=== PATIENT | female | born 1945 | race Caucasian/White ===

== ENCOUNTER → 2017-01-23 | Outpatient (CLI) | payer MEDICARE ==
[~2017-01-23] MED LIST: ACET-819 PO; AMT50T; ASP325TEC; B-12 INJECTION; BUPR150T7 PO; CA C1TAB26 PO; CEREFOLIN; CLD600T; CRANBERRY SUPPLEMENT; DEXL60CA5 PO; DXCC100C; ELESTAT; EPIN5DRO3 OP; ESTROGCO.3; FIBER SUPPLEMENT; FLX20C; GBPN100C PO; IRBE1TAB; L-METHYLFOLATE; LOSA1TAB23 PO; LVT.025T; MULT1TAB63; OMG1KC; PROP1TAB77; SENN1TAB76; SOOTHE EYE DROPS; STOOL SOFTENER; [UNRECOGNIZED DRUG - CODE]; [UNRECOGNIZED DRUG - CODE] PO
--- NOTE | 2017-01-23 12:16 | Diagnostic Imaging Report ---
PROCEDURE: US Thyroid. TECHNIQUE: Multiple real-time grayscale images were obtained of the thyroid in various projections. INDICATION: Abnormal thyroid labs. FINDINGS: The right thyroid lobe is 4.2 x 1.7 x 1.5 cm. The left lobe is 4.2 x 1.1 x 1.4 cm. A fairly homogeneous gland is seen with no nodule identified. IMPRESSION: Unremarkable exam. Dictated by: Dictated on workstation # [id number]
== END ==
LOC: RAD 10:55
PROVIDERS: ATTEND Family Medicine
DX: E03.9 Hypothyroidism, unspecified (principal)
CPT/HCPCS: 76536

== ENCOUNTER → 2017-04-23 | Outpatient (CLI) | payer MEDICARE ==
[~2017-04-23] VITALS: Ht 167.6 cm; Wt 104.3 kg
[~2017-04-23] MED LIST changes: +NS (IVPB) 50 ML ONE; +NS IV 1000 ML 1,000 ML IV ONE; +NS IV 1000 ML 1,000 ML ONE; +ONDANSETRON 4 MG/2 ML (SDV) Z0FRAN IV ONE; +ONDANSETRON 4 MG/2 ML (SDV) Z0FRAN ONE; +cefTRIAXone 1 GM (ROCEPHIN) VIAL ONE; +cefTRIAXone 1 GM/NS 50 ML IVPB IV ONE
[2017-04-23 15:07] VITALS: BP 137/86
== END ==
LOC: SDC 14:43
PROVIDERS: ATTEND Family Medicine
DX: N10 Acute pyelonephritis (principal); E86.0 Dehydration
CPT/HCPCS: 96360; 96366; 96374

== ENCOUNTER 2017-07-21 10:14 | Observation (INO) | payer MEDICARE ==
[~2017-07-21] VITALS: Ht 167.6 cm; Wt 103.4 kg
[~2017-07-21 10:14] MED LIST changes: -NS (IVPB) 50 ML ONE; -NS IV 1000 ML 1,000 ML IV ONE; -NS IV 1000 ML 1,000 ML ONE; -ONDANSETRON 4 MG/2 ML (SDV) Z0FRAN IV ONE; -ONDANSETRON 4 MG/2 ML (SDV) Z0FRAN ONE; -cefTRIAXone 1 GM (ROCEPHIN) VIAL ONE; -cefTRIAXone 1 GM/NS 50 ML IVPB IV ONE
--- OUTSIDE RECORDS SUMMARY | 2017-07-21 10:20 | XMS REPORT | Continuity of Care Document ---
Author Author [facility] Organization [facility] Address Unknown Phone Unavailable Allergies Active Description Code Type Severity Reaction Onset Reported/Identified Relationship to Patient Clinical Status Yes No Known Drug Allergies [id number] Drug Allergy Unknown N/ A 07/19/2008 Medications Problems Date Dx Coded Attending Type Code Diagnosis Diagnosed By 11/15/2011 Ot 211.1 BENIGN NEOPLASM STOMACH 11/15/2011 Ot 455.0 INT HEMORRHOID W/O COMPL 11/15/2011 Ot 530.11 REFLUX ESOPHAGITIS 11/15/2011 Ot 535.50 UNSP GASTRITIS GASTRODUODENITIS W/O ME 11/15/2011 Ot 553.3 DIAPHRAGMATIC HERNIA 11/15/2011 Ot 562.10 DIVERTICULOSIS COLON (W/O MENT OF HEMORR 05/06/2014 ANN MARIE FRAZIER DO Ot 722.52 LUMB/LUMBOSAC DISC DEGEN 05/06/2014 ANN MARIE FRAZIER DO Ot V57.1 PHYSICAL THERAPY NEC 11/03/2014 Ot 787.3 11/03/2014 Ot V81.5 11/03/2014 Ot 721.0 11/03/2014 Ot 715.94 11/03/2014 Ot 729.5 11/03/2014 Ot 397.0 11/03/2014 Ot 424.0 11/03/2014 Ot 786.50 11/03/2014 Ot 794.31 11/03/2014 Ot V72.84 11/03/2014 Ot 715.96 11/03/2014 BALAJI PARTIDA, Martha PALOMARES Ot 564.00 11/03/2014 Martha CARPIO MD Ot 595.9 11/04/2014 ANN MARIE FRAZIER DO Ot 733.90 11/17/2015 LALO MORALES MD Ot M47.816 SPONDYLOSIS W/O MYELOPATHY OR RADICULOPA 11/17/2015 LALO MORALES MD Ot Z79.899 OTHER CLAY GRINDER (CURRENT) DRUG THERAPY 12/07/2015 LALO MORALES MD, Ot M54.2 12/07/2015 LALO MORALES MD Ot M54.5 12/18/2015 LALO MORALES MD Ot M54.2 12/18/2015 LALO MORALES MD Ot M54.5 03/01/2016 LALO MORALES MD Ot M47.812 SPONDYLOSIS W/O MYELOPATHY OR RADICULOPA 03/01/2016 LALO MORALES MD, Ot M47.816 SPONDYLOSIS W/O MYELOPATHY OR RADICULOPA 03/01/2016 LALO MORALES MD Ot Z79.899 OTHER CLAY GRINDER (CURRENT) DRUG THERAPY 06/14/2016 Ot 715.94 OSTEOARTHROS NOS-HAND 06/14/2016 Ot 729.5 PAIN IN LIMB 06/14/2016 Ot 397.0 TRICUSPID VALVE DISEASE 06/14/2016 Ot 424.0 MITRAL VALVE DISORDER 06/14/2016 Ot 786.50 CHEST PAIN NOS 06/14/2016 Ot 794.31 ABNORM ELECTROCARDIOGRAM 06/14/2016 Ot V72.84 EXAM PRE-OPERATIVE NOS 06/14/2016 Ot 715.96 OSTEOARTHROS NOS-L/LEG 06/14/2016 BALAJI PARTIDA, Martha PALOMARES Ot 564.00 UNSPEC CONSTIPATION 06/14/2016 BALAJI PARTIDA, Martha PALOMARES Ot 595.9 CYSTITIS NOS 06/14/2016 ANN MARIE FRAZIER DO Ot 733.90 BONE CARTILAGE DIS NOS 06/14/2016 LALO MORALES MD Ot M54.2 CERVICALGIA 06/14/2016 LALO MORALES MD Ot M54.5 LOW BACK PAIN 06/14/2016 LALO MORALES MD Ot M47.812 SPONDYLOSIS W/O MYELOPATHY OR RADICULOPA 06/14/2016 LALO MORALES MD Ot M47.816 SPONDYLOSIS W/O MYELOPATHY OR RADICULOPA 06/14/2016 LALO MORALES MD Ot Z79.899 OTHER CLAY GRINDER (CURRENT) DRUG THERAPY 07/04/2016 LALO MORALES MD Ot M47.812 SPONDYLOSIS W/O MYELOPATHY OR RADICULOPA 07/04/2016 LALO MORALES MD Ot M47.816 SPONDYLOSIS W/O MYELOPATHY OR RADICULOPA 07/04/2016 LALO MORALES MD Ot Z79.899 OTHER CLAY GRINDER (CURRENT) DRUG THERAPY 01/23/2017 IVONENDER JENNIFER PARADALINE S Ot E03.9 HYPOTHYROIDISM, UNSPECIFIED 01/24/2017 IVONENDER DOGISSELANN MARIE S Ot E03.9 HYPOTHYROIDISM, UNSPECIFIED 02/14/2017 IVONENDER DOGISSELANN MARIE S Ot E03.9 HYPOTHYROIDISM, UNSPECIFIED 02/19/2017 IVONENDER DOGISSELANN MARIE S Ot E03.9 HYPOTHYROIDISM, UNSPECIFIED Procedures Results Encounters ACCT No. Visit Date/Time Discharge Status Pt. Type Provider Facility Loc./Unit Complaint [id number] 04/23/2017 14:43:00 2016 23:59:59 CLS Outpatient IVONENDER DO ANN MARIE S [facility] SDC ACUTE PYELONEPHRITIS,ACUTE DEHYDRATION [id number] 01/23/2017 10:55:00 2016 23:59:59 CLS Outpatient IVONENDER DO ANN MARIE S [facility] RAD E03.9 [id number] 06/14/2016 08:33:00 2015 09:26:00 DIS Outpatient LALO MORALES MD [facility] CARD SPONDYLOSIS [id number] 03/01/2016 07:37:00 2015 08:52:00 DIS Outpatient LLAO MORALES MD [facility] CARD SPONDYLOSIS [id number] 11/17/2015 08:34:00 2015 09:56:00 DIS Outpatient LALO MORALES MD [facility] CARD SPONDYLOSIS W/O MYELOPATHY OR RADICULOPATHY [id number] 11/14/2015 10:19:00 2015 23:59:59 CLS Outpatient LALO MORALES MD [facility] RAD LOW BACK PAIN [id number] 11/03/2014 09:51:00 2014 23:59:59 CLS Outpatient IVONENDGISSEL ESQUIVEL DOQUELINE S [facility] RAD OSTEOPENIA [id number] 04/18/2014 13:01:00 2013 10:27:00 DIS Outpatient FREDDIE PARADA ANN MARIE S [facility] REHAB LUMBAR DDD, RT HIP PAIN [id number] 06/22/2013 08:51:00 2012 23:59:59 [facility] Outpatient Martha CARPIO MD [facility] RAD CHRONIC CYSTITIS [id number] 05/26/2012 08:11:00 Document Registration [id number] 11/15/2011 09:00:00 Document Registration [id number] 11/13/2011 08:29:00 Document Registration [id number] 07/10/2011 08:27:00 Document Registration [id number] 05/06/2011 14:06:00 Document Registration [id number] 08/21/2010 10:24:00 Document Registration [id number] 05/11/2010 10:09:00 Document Registration
[2017-07-21] MEDS ORDERED: ASPIRIN 81 MG CHEW (CHILDREN'S ASA) PO ONE (10:30)
[2017-07-21] MEDS ORDERED: ONDANSETRON 4 MG/2 ML (SDV) Z0FRAN IVP ONE ×2 (10:30→11:45)
[2017-07-21 10:50] LABS: BASOPHILS % (AUTO) 0 % (0-10); EOSINOPHILS # (AUTO) 0.1 10^3/uL (0.0-0.3); EOSINOPHILS % (AUTO) 2 % (0-10); LYMPHOCYTES # (AUTO) 0.3 X 10^3 (1.0-4.0); LYMPHOCYTES % (AUTO) 4 % (12-44); MEAN CORPUSCULAR HEMOGLOBIN 33 PG (25-34); MEAN CORPUSCULAR HGB CONC 33 G/DL (32-36); MEAN CORPUSCULAR VOLUME 100 FL (80-99); MEAN PLATELET VOLUME 9.7 FL (7.4-10.4); MONOCYTES # (AUTO) 0.3 X 10^3 (0.0-1.0); MONOCYTES % (AUTO) 4 % (0-12); NEUTROPHILS # (AUTO) 6.5 X 10^3 (1.8-7.8); NEUTROPHILS % (AUTO) 90 % (42-75); PLATELET COUNT 237 10^3/uL (130-400); RED BLOOD COUNT 4.02 10^6/uL (4.35-5.85); RED CELL DISTRIBUTION WIDTH 12.8 % (10.0-14.5); WHITE BLOOD COUNT 7.3 10^3/uL (4.3-11.0)
[2017-07-21 11:03] LABS: INR 0.8 (0.8-1.4); PROTHROMBIN TIME PATIENT 11.5 SEC (12.2-14.7)
[2017-07-21 11:08] LABS: BAND NEUTROPHILS 9 %; BASOPHILS % (MANUAL) 0 %; EOSINOPHILS % (MANUAL) 0 %; LYMPHOCYTES % (MANUAL) 6 %; NEUTROPHILS % (MANUAL) 84 %
[2017-07-21 11:12] LABS: ALANINE AMINOTRANSFERASE 48 U/L (0-55); ALBUMIN 4.1 GM/DL (3.2-4.5); AMYLASE 40 U/L (25-125); ANION GAP 11 MMOL/L (5-14); ASPARTATE AMINO TRANSFERASE 63 U/L (5-34); BILIRUBIN,TOTAL 0.6 MG/DL (0.1-1.0); BLOOD UREA NITROGEN 20 MG/DL (7-18); BUN/CREATININE RATIO 17; CALCIUM 9.4 MG/DL (8.5-10.1); CARBON DIOXIDE 24 MMOL/L (21-32); CHLORIDE 104 MMOL/L (98-107); GFR ESTIMATED 45; GLUCOSE 148 MG/DL (70-105); LIPASE 22 U/L (8-78); MAGNESIUM 1.7 MG/DL (1.8-2.4); POTASSIUM 3.6 MMOL/L (3.6-5.0); SODIUM 139 MMOL/L (135-145); TOTAL PROTEIN 6.8 GM/DL (6.4-8.2)
[2017-07-21 11:18] LABS: TROPONIN I < 0.30 NG/ML (<0.30)
--- NOTE | 2017-07-21 11:22 | Diagnostic Imaging Report ---
INDICATION: Chest pain. Frontal chest obtained 10:57 a.m. Heart and mediastinal silhouette are normal in appearance. The lungs are clear. There is no pneumothorax or pleural fluid. There is elevation of the right hemidiaphragm. IMPRESSION: No acute process in the chest. Elevation of the right hemidiaphragm is noted. Dictated by: Dictated on workstation # [id number]
[2017-07-21] MEDS ORDERED: PANTOPRAZOLE 40 MG/10 ML (PROTONIX) VIAL IV ONE (11:45)
[2017-07-21 12:41] VITALS: BP 145/69
--- NOTE | 2017-07-21 12:44 | Consultation-Cardiology ---
HPI-Cardiology Cardiology Consultation Date of Consultation 07/21/17 Date of Admission Time Seen by Provider: 12:39 HPI 71 years old lady with history of hypertension, hyperlipidemia, started having chest pain woke her up in the morning lasted for about 10 minutes, described it as dull in nature in the retrosternal area not radiating. Has dyspnea on exertion no palpitation, no syncope or near syncopal episode no claudications. Upper my evaluation she was chest pain-free. Cardiac enzymes were negative, EKG was showing minimal nondiagnostic changes Home Medications & Allergies Allergies: Coded Allergies: No Known Drug Allergies (Verified , 07/19/08) Home Medication List Reviewed: Yes BCY-Dtrcsq-Dmjtyt Hx Patient Social History Marital Status: Alcohol Use: Denies Use Recreational Drug Use: No Smoking Status: Never a Smoker Recent Foreign Travel: No Recent Infectious Disease Expo: No Recent Hopitalizations: No Immunizations Up To Date Date of Pneumonia Vaccine: Jun 22, 2010 Date of Influenza Vaccine: Jun 22, 2011 Past Medical History Past medical history is discussed below Constitutional: no symptoms reported, see HPI EENTM: see HPI, no symptoms reported Respiratory: see HPI, No cough, No dyspnea on exertion, No hemoptysis, No orthopnea, No phlegm, No short of breath, No stridor, No wheezing, No other Cardiovascular: see HPI, chest pain, No edema, No Hx of Intervention, No palpitations, No syncope, No vascular heart diseas, No other Gastrointestinal: see HPI, heartburn, vomiting Genitourinary: see HPI Musculoskeletal: no symptoms reported, see HPI Skin: no symptoms reported, see HPI Psychiatric/Neurological: No Symptoms Reported, See HPI Reviewed Test Results Reviewed Test Results Lab Laboratory Tests Test 07/21/17 10:30 Range/Units White Blood Count 7.3 4.3-11.0 10^3/uL Red Blood Count 4.02 L 4.35-5.85 10^6/uL Hemoglobin 13.2 11.5-16.0 G/DL Hematocrit 40 35-52 % Mean Corpuscular Volume 100 H 80-99 FL Mean Corpuscular Hemoglobin 33 25-34 PG Mean Corpuscular Hemoglobin Concent 33 32-36 G/DL Red Cell Distribution Width 12.8 10.0-14.5 % Platelet Count 237 130-400 10^3/uL Mean Platelet Volume 9.7 7.4-10.4 FL Neutrophils (%) (Auto) 90 H 42-75 % Lymphocytes (%) (Auto) 4 L 12-44 % Monocytes (%) (Auto) 4 0-12 % Eosinophils (%) (Auto) 2 0-10 % Basophils (%) (Auto) 0 0-10 % Neutrophils # (Auto) 6.5 1.8-7.8 X 10^3 Lymphocytes # (Auto) 0.3 L 1.0-4.0 X 10^3 Monocytes # (Auto) 0.3 0.0-1.0 X 10^3 Eosinophils # (Auto) 0.1 0.0-0.3 10^3/uL Basophils # (Auto) 0.0 0.0-0.1 10^3/uL Neutrophils % (Manual) 84 % Lymphocytes % (Manual) 6 % Monocytes % (Manual) 1 % Eosinophils % (Manual) 0 % Basophils % (Manual) 0 % Band Neutrophils 9 % Blood Morphology Comment NORMAL Prothrombin Time 11.5 L 12.2-14.7 SEC INR Comment 0.8 0.8-1.4 Activated Partial Thromboplast Time 25 24-35 SEC Sodium Level 139 135-145 MMOL/L Potassium Level 3.6 3.6-5.0 MMOL/L Chloride Level 104 98-107 MMOL/L Carbon Dioxide Level 24 21-32 MMOL/L Anion Gap 11 5-14 MMOL/L Blood Urea Nitrogen 20 H 7-18 MG/DL Creatinine 1.20 0.60-1.30 MG/DL Estimat Glomerular Filtration Rate 45 BUN/Creatinine Ratio 17 Glucose Level 148 H 70-105 MG/DL Calcium Level 9.4 8.5-10.1 MG/DL Magnesium Level 1.7 L 1.8-2.4 MG/DL Total Bilirubin 0.6 0.1-1.0 MG/DL Aspartate Amino Transf (AST/SGOT) 63 H 5-34 U/L Alanine Aminotransferase (ALT/SGPT) 48 0-55 U/L Alkaline Phosphatase 97 40-136 U/L Troponin I < 0.30 <0.30 NG/ML B-Type Natriuretic Peptide 42.0 <100.0 PG/ML Total Protein 6.8 6.4-8.2 GM/DL Albumin 4.1 3.2-4.5 GM/DL Amylase Level 40 25-125 U/L Lipase 22 8-78 U/L Physical Exam Vital Signs Vital Sign - Last 12Hours 07/21/17 10:37 Temp 98.1 Pulse 77 Resp 16 B/P (MAP) 125/54 Pulse Ox 98 O2 Delivery Room Air Capillary Refill : Less Than 3 Seconds General Appearance: No Apparent Distress, WD/WN Eyes: Bilateral Eye Normal Inspection, Bilateral Eye PERRL, Bilateral Eye EOMI HEENT: PERRL/EOMI, TMs Normal, Normal ENT Inspection, Pharynx Normal Neck: Full Range of Motion, Normal Inspection, Non Tender, Supple, Carotid Bruit Respiratory: Chest Non Tender, Lungs Clear, Normal Breath Sounds, No Accessory Muscle Use, No Respiratory Distress Cardiovascular: Regular Rate, Rhythm, No Edema, No Gallop, No JVD, No Murmur, Normal Peripheral Pulses Gastrointestinal: Normal Bowel Sounds, No Organomegaly, No Pulsatile Mass, Non Tender, Soft Back: Normal Inspection, No CVA Tenderness, No Vertebral Tenderness Extremity: Normal Capillary Refill, Normal Inspection, Normal Range of Motion, Non Tender, No Calf Tenderness, No Pedal Edema Neurologic/Psychiatric: Alert, Oriented x3, No Motor/Sensory Deficits, Normal Mood/Affect Skin: Normal Color, Warm/Dry Lymphatic: No Adenopathy A/P-Cardiology Admission Diagnosis chest pain nonspecific etiology Hypertension Gastroesophageal reflux disease Obesity Assessment/Plan Chest pain nonspecific etiology, atypical in presentation, planning to proceed with exercise stress test and echocardiogram, currently chest pain-free, EKG did not show any acute abnormality, there is no diagnostic T wave abnormality. Chronic enzymes first set is negative. I'll start patient on aspirin and Lovenox and monitor Hypertension, better control. Continue to monitor blood pressure Gastroesophageal reflux disease. Back pain, managed by primary care physician BMI is 37, we discussed weight loss and exercise. Addendum, patient underwent exercise stress echocardiogram which showed poor exercise tolerance for a total of 2 minutes and 30 seconds on standard Luis protocol, no ischemic changes. Normal echocardiographic images. Chronic enzymes second set were negative. Okay for discharge from cardiology standpoint KYM MEYERS MD Jul 21, 2017 12:44
[2017-07-21] MEDS ORDERED: ENOXAPARIN 100 MG/1 ML (LOVENOX) SYR SC SCH (12:45)
[2017-07-21] MEDS ORDERED: morphine INJ 4 MG/ML 1 ML (VIAL/SYRINGE) IV PRN (13:00)
[2017-07-21] MEDS ORDERED: NITROGLYCERIN 0.4 MG SL TABS BTL 25'S SL PRN (13:00)
[2017-07-21] MEDS ORDERED: CATHETER FLUSH 10 ML SYR IV PRN (13:00)
[2017-07-21] MEDS ORDERED: ONDANSETRON 4 MG/2 ML (SDV) Z0FRAN IV PRN (13:00)
[2017-07-21] MEDS ORDERED: CATHETER FLUSH 10 ML SYR IV SCH (14:00)
--- NOTE | 2017-07-21 14:03 | History & Physicial ---
History of Present Illness History of Present Illness Reason for visit/HPI This is a 71 year old female who was awakened from sleep at 7AM with upper abdominal pressure and right and left sided chest pressure. She also had associated nausea but denied shortness of air or diaphoresis. The pain lasted about 10 minutes and had resolved by the time she arrived in the emergency department. Her EKG showed no acute S-T segment changes and her cardiac enzymes were negative but due to her risk factors it was decided to admit her for repeat cardiac enzymes and cardiology consultation. Date of Admission Jul 21, 2017 at 11:30 am Date Seen by Provider: Jul 21, 2017 Time Seen by Provider: 13:58 I consulted on this patient on 07/21/17 13:58 Attending Physician Zara Pinzon DO Admitting Physician Zara Pinzon DO Consult Allergies and Home Medications Allergies Coded Allergies: No Known Drug Allergies (Verified , 07/19/08) Home Medications Acetaminophen 500 Mg Tablet, 500 MG PO HS, #2 (Reported) Amitriptyline Hcl 50 Mg Tab, (Reported) Aspirin 325 Mg Tabec, (Reported) Bupropion Hcl 150 Mg Tab.sr.24h, 150 MG PO, (Reported) Ca Cmb No.1/Vit D3/B-6/Fa/B12 1 Each Tablet, 1 EACH PO DAILY, (Reported) Calcium/Vitamin D 600 Mg Tab, (Reported) Fluoxetine Hcl 20 Mg Cap, (Reported) Losartan/Hydrochlorothiazide 1 Each Tablet, 1 EACH PO, (Reported) [place] 3 Polyunsat Fatty Acids 1,000 Mg Cap, (Reported) Senna 1 Ea Tablet, (Reported) Vit B12/Lm-Folate Ca/Vit B6/B2 1 Tab Tab, 1 TAB PO DAILY, (Reported) [B-12 Injection ] , (Reported) [Cerefolin] , (Reported) [Elestat] , (Reported) [Fiber Supplement] , (Reported) [Soothe Eye Drops] , (Reported) [Stool Softener] , (Reported) Past Vfffdef-Ecvtze-Shudba Hx Patient Social History Marrital Status: Alcohol Use: Denies Use Recreational Drug Use: No Smoking Status: Never a Smoker Recent Foreign Travel: No Contact w/other who traveled: No Recent Hopitalizations: No Recent Infectious Disease Expo: No Immunizations Up To Date Date of Pneumonia Vaccine: May 23, 2016 Date of Influenza Vaccine: Jun 11, 2017 Respiratory No Cardiovascular No (TIA'S) Neurological Yes Reproductive System Hx Reproductive Disorders: No Sexually Transmitted Disease: No Gastrointestinal Yes (HX PEPTIC ULCER) Musculoskeletal Yes Endocrine History of Endocrine Disorders: No Blood Transfusions History of Blood Disorders: No Constitutional: weakness EENTM: No see HPI, No no symptoms reported, No ear discharge, No hearing loss, No ear pain, No blurred vision, No double vision, No eye pain, No tearing, No vision loss, No dental problems, No hoarseness, No mouth pain, No mouth swelling , No epistaxis, No nose congestion, No nose pain, No throat pain, No throat swelling, No other Respiratory: No no symptoms reported, No see HPI, No cough, No dyspnea on exertion, No hemoptysis, No orthopnea, No phlegm, No short of breath, No stridor , No wheezing, No other Cardiovascular: chest pain Gastrointestinal: abdominal pain, nausea Genitourinary: frequency (recent UTI) Musculoskeletal: back pain Skin: no symptoms reported Psychiatric/Neurological: Depressed, Pre-Existing Deficit Physical Exam Vital Signs Vital Sign - Last 12Hours 07/21/17 10:37 Temp 98.1 Pulse 77 Resp 16 B/P (MAP) 125/54 Pulse Ox 98 O2 Delivery Room Air Capillary Refill : Less Than 3 Seconds General Appearance: No Apparent Distress HEENT: Normal ENT Inspection Neck: Supple Respiratory: Lungs Clear Cardiovascular: Regular Rate, Rhythm, Systolic Murmur Gastrointestinal: Normal Bowel Sounds, Soft, Tenderness (epigastric) Rectal: Deferred Back: No CVA Tenderness Extremity: Non Tender, No Calf Tenderness, No Pedal Edema Neurologic/Psychiatric: Alert, Oriented x3 Skin: Warm/Dry Lymphatic: No Adenopathy Comments Laboratory Tests 07/21/17 10:30: White Blood Count 7.3, Red Blood Count 4.02L, Hemoglobin 13.2, Hematocrit 40, Mean Corpuscular Volume 100H, Mean Corpuscular Hemoglobin 33, Mean Corpuscular Hemoglobin Concent 33, Red Cell Distribution Width 12.8, Platelet Count 237, Mean Platelet Volume 9.7, Neutrophils (%) (Auto) 90H, Lymphocytes (%) (Auto) 4L , Monocytes (%) (Auto) 4, Eosinophils (%) (Auto) 2, Basophils (%) (Auto) 0, Neutrophils # (Auto) 6.5, Lymphocytes # (Auto) 0.3L, Monocytes # (Auto) 0.3, Eosinophils # (Auto) 0.1, Basophils # (Auto) 0.0, Neutrophils % (Manual) 84, Lymphocytes % (Manual) 6, Monocytes % (Manual) 1, Eosinophils % (Manual) 0, Basophils % (Manual) 0, Band Neutrophils 9, Blood Morphology Comment NORMAL, Prothrombin Time 11.5L, INR Comment 0.8, Activated Partial Thromboplast Time 25 , Sodium Level 139, Potassium Level 3.6, Chloride Level 104, Carbon Dioxide Level 24, Anion Gap 11, Blood Urea Nitrogen 20H, Creatinine 1.20, Estimat Glomerular Filtration Rate 45, BUN/Creatinine Ratio 17, Glucose Level 148H, Calcium Level 9.4, Magnesium Level 1.7L, Total Bilirubin 0.6, Aspartate Amino Transf (AST/SGOT) 63H, Alanine Aminotransferase (ALT/SGPT) 48, Alkaline Phosphatase 97, Troponin I < 0.30, B-Type Natriuretic Peptide 42.0, Total Protein 6.8, Albumin 4.1, Amylase Level 40, Lipase 22 Assessment/Plan Assessment and Plan 1. Chest Pain--uncertain etiology--monitor on telemetry, repeat cardiac enzymes , check 2-D ECHO, stress test per surgery, cover with protonix for GI etiology 2. Upper Abdominal Pain/GERD--protonix Problems: Clinical Quality Measures AMI/AHF: ASA po Prior to arrival: ZARA Dey DO Jul 21, 2017 2:03 pm
[2017-07-21] MEDS ORDERED: RANI150T11 PO (14:56)
[2017-07-21] MEDS ORDERED: LOSA1TAB70 PO (14:56)
[2017-07-21] MEDS ORDERED: TRAM50TA2 PO (14:56)
[2017-07-21] MEDS ORDERED: AMIT50TA3 PO (14:56)
[2017-07-21] MEDS ORDERED: BUPR150T7 PO (14:56)
[2017-07-21] MEDS ORDERED: FLUO20CA25 PO (14:56)
[2017-07-21] MEDS ORDERED: DOCU-143 PO (15:07)
[2017-07-21] MEDS ORDERED: PROP10DR4 OU (15:07)
[2017-07-21] MEDS ORDERED: CHOL10007 PO (15:07)
[2017-07-21] MEDS ORDERED: CYAN5000 SL (15:07)
[2017-07-21] MEDS ORDERED: SULF-222 PO (15:07)
[2017-07-21] MEDS ORDERED: ASPI-983 PO (15:07)
[2017-07-21] MEDS ORDERED: CALC625T14 PO (15:07)
[2017-07-21] MEDS ORDERED: PROP15DR OU (15:07)
[2017-07-21] MEDS ORDERED: VIT1TABL5 PO (15:07)
[2017-07-21] MEDS ORDERED: OMG1KC PO (15:07)
[2017-07-21] MEDS ORDERED: CALC-6 PO (15:07)
[2017-07-21] MEDS ORDERED: ACET-168 PO (15:07)
[2017-07-21] MEDS ORDERED: SENN-1 PO (15:07)
[2017-07-21] MEDS ORDERED: PANT40TA2 PO (16:07)
--- NOTE | 2017-07-21 16:10 | Discharge Inst-Simple/Standard ---
Discharge Inst-Standard Discharge Medications New, Converted or Re-Newed RX: Transmitted to Pharmacy Patient Instructions/Follow Up Plan of Care/Instructions/FU: fwup in 2 weeks Activity as Tolerated: Yes Discharge Diet: Cardiac Diet ANN MARIE FRAZIER DO Jul 21, 2017 4:10 pm
[2017-07-21] MEDS ORDERED: AMITRIPTYLINE 50 MG (ELAVIL) TAB PO SCH (21:00)
[2017-07-21] MEDS ORDERED: CAL. POLYCARBOPHIL 625 MG (FIBERCON) TAB PO SCH (21:00)
[2017-07-21] MEDS ORDERED: DOCUSATE SODIUM 100 MG (COLACE) CAP PO SCH (21:00)
[2017-07-21] MEDS ORDERED: ACETAMINOPHEN 500 MG TAB (TYLENOL) PO SCH (21:00)
[2017-07-21] MEDS ORDERED: SENNA W/DOCUSATE (SENOKOT S) TABLET PO SCH (21:00)
[2017-07-21] MEDS ORDERED: ASPIRIN E.C. 81 MG (ECOTRIN) TAB PO SCH (21:00)
[2017-07-22] MEDS ORDERED: TRIM/SULFAMETH 160/800 (SEPTRA DS) TAB PO SCH (08:00)
[2017-07-22] MEDS ORDERED: buPROPion XL 150 MG (WELLBUTRIN XL) NON-FORM PO SCH (09:00)
[2017-07-22] MEDS ORDERED: SYSTANE EYE DROPS 15 ML (NON-FORMULARY) OP SCH (09:00)
[2017-07-22] MEDS ORDERED: PANTOPRAZOLE 40 MG/10 ML (PROTONIX) VIAL IV SCH (09:00)
[2017-07-22] MEDS ORDERED: LOSARTAN 50 MG (COZAAR) TAB PO SCH (09:00)
[2017-07-22] MEDS ORDERED: FLUoxetine HCL 20 MG (PROzac) CAP PO SCH (09:00)
[2017-07-22] MEDS ORDERED: buPROPion SR 150 MG (WELLBUTRIN SR) TAB PO SCH (09:00)
[2017-07-22] MEDS ORDERED: ASPIRIN E.C. 325 MG (ECOTRIN) TABLET PO SCH (09:00)
[2017-07-22] MEDS ORDERED: ARTIFICAL TEARS 0.4 ML UNIT DOSE (REFRESH PLUS) OU SCH (09:00)
[2017-07-22] MEDS ORDERED: HYDROCHLOROTHIAZIDE 25 MG (HCTZ) TAB PO SCH (09:00)
--- NOTE | 2017-07-22 09:48 | STRESS TEST ---
DATE OF SERVICE: 07/21/2017 EXERCISE STRESS ECHO REFERRING PHYSICIAN: Dr. Pinzon. INDICATION: Chest pain. Baseline heart rate 74, baseline blood pressure 120/40, baseline EKG sinus rhythm with no ischemic changes. In summary, the patient started exercising with a baseline heart rate, blood pressure and EKG mentioned above. She was able to exercise for 2 minutes and 30 seconds on standard Luis protocol. She was extremely short of breath with exertion, achieved a maximum heart rate of 125, which is 83% of maximum expected heart rate. With peak exercise level blood pressure was 139/45. EKG was showing minimal undiagnostic changes. During recovery, heart rate and blood pressure returned to baseline. EKG returned to baseline. Echocardiographic images were acquired and reviewed in the parasternal long axis, parasternal short axis, apical four chamber and apical two chamber views. Review of the images showed normal left ventricular size with contractility with no ischemic changes. CONCLUSION: 1. Poor exercise tolerance. A total of 2 minutes 30 seconds on standard Luis protocol, total of 3.8 METS achieving 83% of maximum expected heart rate. 2. Nondiagnostic EKG changes with exercise returned to baseline during recovery. 3. Normal echocardiographic images at rest and with peak stress images with no ischemic changes. Job ID: [id number] DocumentID: [id number] Dictated Date: 07/21/2017 17:54:52 Support Services Specialist Date: 07/21/2017 23:09:59 Dictated By: KYM MEYERS MD
== END 2017-07-21 16:07 | disposition home or self-care (01) ==
LOC: EDUNIT# 10:14 → ER 10:15 → ICU 11:30 → UNDOADMOB 11:30 → ICU 12:36 → UNDODISOB 16:50
PROVIDERS: ADMIT Family Medicine; ATTEND Family Medicine
DX: R07.9 Chest pain, unspecified (principal); R10.13 Epigastric pain; K21.9 Gastro-esophageal reflux disease without esophagitis; I10 Essential (primary) hypertension; E78.5 Hyperlipidemia, unspecified; M54.5 Low back pain; G89.29 Other chronic pain; E66.9 Obesity, unspecified; Z68.37 Body mass index [BMI] 37.0-37.9, adult; Z79.82 Long term (current) use of aspirin; Z79.899 Other long term (current) drug therapy
CPT/HCPCS: 36415; 71010; 80053; 82150; 83690; 83735; 83880; 84484; 85007; 85027; 85610; 85730; 93005; 93041; 93306; 93351

== ENCOUNTER 2017-07-22 15:25 | Outpatient (CLI) | payer MEDICARE ==
[~2017-07-22] VITALS: Ht 167.6 cm; Wt 103.4 kg
[~2017-07-22 15:25] MED LIST changes: +ACET-168 PO; +AMIT50TA3 PO; +ASPI-983 PO; +CALC-6 PO; +CALC625T14 PO; +CHOL10007 PO; +CYAN5000 SL; +DOCU-143 PO; +FLUO20CA25 PO; +LOSA1TAB70 PO; +NS IV 1000 ML 1,000 ML ONE; +OMG1KC PO; +PANT40TA2 PO; +PROP10DR4 OU; +PROP15DR OU; +RANI150T11 PO; +SENN-1 PO; +SULF-222 PO; +TRAM50TA2 PO; +VIT1TABL5 PO
[2017-07-22 15:30] VITALS: BP 120/70
[2017-07-22] MEDS ORDERED: NS IV 1000 ML 1,000 ML IV ONE (16:15)
== END 2017-07-22 16:55 | disposition home or self-care (01) ==
LOC: SDC 15:25
PROVIDERS: ATTEND Nurse Practitioner Family
DX: E86.0 Dehydration (principal)
CPT/HCPCS: 96360

== ENCOUNTER 2017-08-21 05:35 | Outpatient (CLI) | payer MEDICARE ==
[~2017-08-21] VITALS: Ht 167.6 cm; Wt 103.4 kg
[~2017-08-21 05:35] MED LIST changes: -LOSA1TAB70 PO; -NS IV 1000 ML 1,000 ML ONE
== END 2017-08-21 10:27 ==
LOC: PREOP 05:35
PROVIDERS: ATTEND Surgery
DX: Z01.818 Encounter for other preprocedural examination (principal); K02.9 Dental caries, unspecified

== ENCOUNTER 2017-08-28 07:22 | Day surgery (SDC) | payer MEDICARE ==
[~2017-08-28] VITALS: Ht 167.6 cm; Wt 103.4 kg
[2017-08-28] MEDS ORDERED: HURRICAINE EXT TUBE (BENZOCAINE) XX PRN (07:45)
[2017-08-28] MEDS ORDERED: NS IV 500 ML 500 ML IV PRN (07:50)
--- NOTE | 2017-08-28 07:53 | Conscious Sedation/ASA ---
Conscious Sedation Pre-Proced Time Reviewed: 07:53 ASA Class: 2 Airway Mallampati Classification: ([place] appropriate class) I. II. III, IV Lungs Heart ASA score ASA 1: a normal healthy patient ASA 2: a patient with a mild systemic disease (mid diabetes, controlled hypertension, obesity ASA 3: a patient with a severe systemic disease that limits activity (angina , COPD, prior Myocardial infarction) ASA 4: a patient with an incapacitating disease that is a constant threat to life (CHF, renal failure) ASA 5: a moribund patient not expected to survive 24 hrs. (ruptured aneurysm) ASA 6: a declared brain patient whose organs are being harvested. For emergent operations, add the letter E after the classification Grade 1 Sedation Plan: Discussed options with patient/fam Note The patient is an appropriate candidate to undergo the planned procedure, sedation, and anesthesia. The patient immediately re-assessed prior to indication. CHINA MCARTHUR MD Aug 28, 2017 7:53 am
--- NOTE | 2017-08-28 07:53 | History & Physicial ---
History of Present Illness History of Present Illness Reason for visit/HPI to undergo an upper endoscopy regarding symptoms of reflux disease and intermittent dysphagia Date of Admission 08/28/17 Date Seen by Provider: Aug 28, 2017 Time Seen by Provider: 07:52 I consulted on this patient on 08/28/17 07:51 Attending Physician Kt Mcarthur MD Admitting Physician Zara Pinzon DO Consult Allergies and Home Medications Allergies Coded Allergies: No Known Drug Allergies (Unverified , 08/21/17) Home Medications Acetaminophen 500 Mg Tablet, 1,000 MG PO HS, (Reported) TAKES 2 (500MG) TABLETS Amitriptyline HCl 50 Mg Tablet, 50 MG PO HS, (Reported) Aspirin 81 Mg Tablet.dr, 81 MG PO HS, (Reported) Bupropion HCl 150 Mg Tab.er.24h, 150 MG PO DAILY, (Reported) Calcium Polycarbophil 625 Mg Tablet, 625 MG PO BID, (Reported) Cholecalciferol (Vitamin D3) 1,000 Unit Capsule, 1,000 UNIT PO HS, (Reported) Cyanocobalamin (Vitamin B-12) 5,000 Mcg Tab.subl, 2,500 MCG SL Q48H, (Reported) TAKES 1/2 (5,000MCG) TABLET Docusate Sodium 100 Mg Capsule, 200 MG PO BID, (Reported) TAKES 2 (100MG) CAPSULES Fluoxetine HCl 20 Mg Capsule, 60 MG PO DAILY, (Reported) TAKES 3 (20MG) CAPSULES Losartan/Hydrochlorothiazide 1 Each Tablet, 1 TAB PO DAILY, (Reported) Pantoprazole Sodium 40 Mg Tablet.dr, 40 MG PO BID, #60 Prescribed by: ZARA PINZON on 07/21/17 [id number] Propylene Glycol/Peg 400 10 Ml Drops.gel, 1 DROP OU HS, (Reported) Sennosides/Docusate Sodium 1 Each Tablet, 1 TAB PO BID, (Reported) Sulfamethoxazole/Trimethoprim 1 Each Tablet, 0.5 TAB PO DAILY, (Reported) TAKES 1/2 TABLET Tramadol HCl 50 Mg Tablet, 50 MG PO TID PRN for PAIN-MODERATE, (Reported) Past Evpbasx-Hhzzvh-Rtmbbf Hx Patient Social History Employed/Student: retired Recent Foreign Travel: No Contact w/other who traveled: No Recent Hopitalizations: Yes (Jun- ) Immunizations Up To Date Date of Pneumonia Vaccine: May 26, 2017 Date of Influenza Vaccine: Jun 11, 2017 Seasonal Allergies Seasonal Allergies: No Surgeries Yes (SUBTOTAL GASTRIC RESECTION DUE TO ULCERS, COLON/BLADDER TUMOR REMOVED, ROTA ) Gallbladder, Hysterectomy Respiratory No Currently Using CPAP: Yes Cardiovascular No Hypertension Neurological Yes TIA Reproductive System Hx Reproductive Disorders: No Sexually Transmitted Disease: No HIV/AIDS: No Genitourinary Yes UTI-Chronic Gastrointestinal Yes (HX PEPTIC ULCER) Gastroesophageal Reflux, Chronic Constipation, Ulcer Musculoskeletal Yes Arthritis, Chronic Back Pain Endocrine History of Endocrine Disorders: No HEENT History of HEENT Disorders: Yes HEENT Disorders: Cataract Loss of Vision: Bilateral Hearing Impairment: Denies Cancer No Psychosocial History of Psychiatric Problem: No Behavioral Health Disorders: Anxiety, Depression Integumentary History of Skin or Integumenta: No Blood Transfusions History of Blood Disorders: No Adverse Reaction to a Blood Tr: No (HAS HAD BLOOD WITH NO REACTION) Constitutional: no symptoms reported EENTM: no symptoms reported Respiratory: no symptoms reported Cardiovascular: no symptoms reported Gastrointestinal: see HPI Genitourinary: no symptoms reported Musculoskeletal: no symptoms reported Skin: no symptoms reported Psychiatric/Neurological: No Symptoms Reported Physical Exam Vital Signs Capillary Refill : General Appearance: No Apparent Distress HEENT: Normal ENT Inspection Neck: Normal Inspection Respiratory: Lungs Clear Cardiovascular: Regular Rate, Rhythm Gastrointestinal: Non Tender, Soft Neurologic/Psychiatric: Alert, Oriented x3 Assessment/Plan Assessment and Plan lady with long-standing symptoms of gastroesophageal reflux. For upper endoscopy. Problems: KT MCARTHUR MD Aug 28, 2017 7:53 am
[2017-08-28 07:54] VITALS: BP 123/62
[2017-08-28] MEDS ORDERED: MIDAZOLAM 2 MG/2 ML (VERSED) VIAL ONE ×3 (08:04)
[2017-08-28] MEDS ORDERED: fentaNYL INJECTION 100 MCG/2 ML AMP ONE (08:04)
[2017-08-28] MEDS ORDERED: HURRICAINE EXT TUBE (BENZOCAINE) ONE (08:05)
[2017-08-28] MEDS: fentaNYL INJECTION 100 MCG/2 ML AMP IVP PRN ×2 (08:31→08:40)
[2017-08-28] MEDS: MIDAZOLAM 2 MG/2 ML (VERSED) VIAL IVP PRN ×3 (08:32→08:41)
--- NOTE | 2017-08-28 08:53 | Endo Procedure Record ---
Endo Procedure Report Date of Procedure Aug 28, 2017 Surgeon (s) CHINA MCARTHUR MD Post Procedure/Op Diagnosis mild inflammation of the gastric remnant( previous subtotal gastrectomy) Procedure Performed EGD with biopsy of gastric remnant Description of Procedure Anesthesia Type: Conscious Sedation Specimen(s) collected/removed mucosa from the gastric remnant Description of the Procedure indication for procedure: This lady came in for an upper endoscopy to evaluate sometimes of reflux disease. In the past, she had undergone subtotal gastrectomy with a Billroth I reconstruction, to manage benign peptic ulcer disease. Informed consent was obtained after reviewing the procedure in detail. Description of the procedure: She was placed in left lateral decubitus position and her vital signs were monitored. Conscious sedation was achieved using Versed and fentanyl. The flexible gastroscope was introduced down the esophagus , past the gastric remnant into the proximal duodenum. Findings: Esophagus: Quite tortuous with a short hiatal hernia. There was no stricture, not any evidence of esophagitis. Stomach: Configuration of Billroth I reconstruction with erythema of the gastric remnant. Biopsy for H. pylori was obtained. Duodenum: Normal She tolerated the procedure well and was taken back to the nursing area in a stable condition. Impression: Symptoms of reflux disease. Previous subtotal gastrectomy. Mild inflammation of the gastric remnant. Helicobacter status pending. Copies To: ANN MARIE FRAZIER XAVIER M MD Aug 28, 2017 8:53 am
--- NOTE | 2017-08-28 08:54 | Discharge Inst-Simple/Standard ---
Discharge Inst-Standard Discharge Medications New, Converted or Re-Newed RX: Other Patient Instructions/Follow Up Plan of Care/Instructions/FU: follow-up with her primary Activity as Tolerated: Yes Discharge Diet: No Restrictions CHINA MCARTHUR MD Aug 28, 2017 8:54 am
[2017-08-28 09:10] VITALS: BP 123/64
[2017-08-28 09:40] VITALS: BP 121/51
[2017-08-28 10:15] VITALS: BP 121/51
== END 2017-08-28 10:15 | disposition home or self-care (01) ==
LOC: ENDO 07:22
PROVIDERS: ATTEND Surgery
DX: K29.70 Gastritis, unspecified, without bleeding (principal); K44.9 Diaphragmatic hernia without obstruction or gangrene; I10 Essential (primary) hypertension; K59.09 Other constipation; F41.9 Anxiety disorder, unspecified; F32.9 Major depressive disorder, single episode, unspecified; Z86.73 Personal history of transient ischemic attack (TIA), and cerebral infarction without residual deficits; Z79.82 Long term (current) use of aspirin; Z79.899 Other long term (current) drug therapy; Z98.890 Other specified postprocedural states
CPT/HCPCS: 88305

== ENCOUNTER → 2017-09-30 | Outpatient (CLI) | payer MEDICARE ==
--- NOTE | 2017-09-30 11:20 | Diagnostic Imaging Report ---
INDICATION: Hip pain. 2 views were obtained Findings: The alignment is normal. There is no fracture or dislocation. Soft tissues are unremarkable. IMPRESSION: No focal abnormality in the right hip apart from some minimal degenerative change. Dictated by: Dictated on workstation # [id number]
== END ==
LOC: RAD 10:18
PROVIDERS: ATTEND Family Medicine
DX: M25.551 Pain in right hip (principal)
CPT/HCPCS: 73502

== ENCOUNTER 2017-11-06 12:52 | Outpatient (RCR) | payer MEDICARE | END 2017-11-06 15:29 | disposition home or self-care (01) | PROVIDERS: ATTEND Family Medicine | DX: M25.551 Pain in right hip (principal); M25.511 Pain in right shoulder ==

== ENCOUNTER 2017-12-24 05:31 | Outpatient (CLI) | payer MEDICARE ==
[~2017-12-24] VITALS: Ht 167.6 cm; Wt 103.4 kg
[2017-12-24] MEDS ORDERED: [UNRECOGNIZED DRUG - CODE] PO (10:45)
== END 2017-12-24 10:54 ==
LOC: PREOP 05:31
PROVIDERS: ATTEND Urology
DX: Z01.818 Encounter for other preprocedural examination (principal); N36.42 Intrinsic sphincter deficiency (ISD); N39.46 Mixed incontinence; N32.81 Overactive bladder

== ENCOUNTER 2017-12-31 06:57 | Day surgery (SDC) | payer MEDICARE ==
[~2017-12-31] VITALS: Ht 167.6 cm; Wt 103.4 kg
[~2017-12-31 06:57] MED LIST changes: +[UNRECOGNIZED DRUG - CODE] PO
[2017-12-31] MEDS ORDERED: NS (IVPB) 100 ML ONE (06:58)
[2017-12-31] MEDS ORDERED: cefTRIAXone 1 GM (ROCEPHIN) VIAL ONE (06:58)
--- OUTSIDE RECORDS SUMMARY | 2017-12-31 07:00 | XMS REPORT | Continuity of Care Document ---
Author Author [facility] Organization [facility] Address Unknown Phone Unavailable Allergies Active Description Code Type Severity Reaction Onset Reported/Identified Relationship to Patient Clinical Status Yes No Known Drug Allergies [id number] Drug Allergy Unknown N/A 12/24/2017 Medications There is no data. Problems Date Dx Coded Attending Type Code Diagnosis Diagnosed By 08/21/1528 ANN MARIE PINZON DO Ot M25.511 PAIN IN RIGHT SHOULDER 08/21/1528 ANN MARIE PINZON DO Ot M25.551 PAIN IN RIGHT HIP 11/15/2011 Ot 211.1 BENIGN NEOPLASM STOMACH 11/15/2011 Ot 455.0 INT HEMORRHOID W/O COMPL 11/15/2011 Ot 530.11 REFLUX ESOPHAGITIS 11/15/2011 Ot 535.50 UNSP GASTRITIS GASTRODUODENITIS W/O ME 11/15/2011 Ot 553.3 DIAPHRAGMATIC HERNIA 11/15/2011 Ot 562.10 DIVERTICULOSIS COLON (W/O MENT OF HEMORR 05/06/2014 ANN MARIE PINZON DO Ot 722.52 LUMB/LUMBOSAC DISC DEGEN 05/06/2014 ANN MARIE PINZON DO Ot V57.1 PHYSICAL THERAPY NEC 11/03/2014 Ot 787.3 11/03/2014 Ot V81.5 11/03/2014 Ot 721.0 11/03/2014 Ot 715.94 11/03/2014 Ot 729.5 11/03/2014 Ot 397.0 11/03/2014 Ot 424.0 11/03/2014 Ot 786.50 11/03/2014 Ot 794.31 11/03/2014 Ot V72.84 11/03/2014 Ot 715.96 11/03/2014 Martha CARPIO MD Ot 564.00 11/03/2014 Martha CARPIO MD Ot 595.9 11/04/2014 ANN MARIE PINZON DO Ot 733.90 11/17/2015 LALO MORALES MD Ot M47.816 SPONDYLOSIS W/O MYELOPATHY OR RADICULOPA 11/17/2015 LALO MORALES MD Ot Z79.899 OTHER RETIREMENT (CURRENT) DRUG THERAPY 12/07/2015 LALO MORALES MD Ot M54.2 12/07/2015 LALO MORALES MD Ot M54.5 12/18/2015 LALO MORALES MD Ot M54.2 12/18/2015 LALO MORALES MD, Ot M54.5 03/01/2016 LALO MORALES MD, Ot M47.812 SPONDYLOSIS W/O MYELOPATHY OR RADICULOPA 03/01/2016 LALO MORALES MD Ot M47.816 SPONDYLOSIS W/O MYELOPATHY OR RADICULOPA 03/01/2016 LALO MORALES MD Ot Z79.899 OTHER RETIREMENT (CURRENT) DRUG THERAPY 06/14/2016 Ot 715.94 OSTEOARTHROS NOS-HAND 06/14/2016 Ot 729.5 PAIN IN LIMB 06/14/2016 Ot 397.0 TRICUSPID VALVE DISEASE 06/14/2016 Ot 424.0 MITRAL VALVE DISORDER 06/14/2016 Ot 786.50 CHEST PAIN NOS 06/14/2016 Ot 794.31 ABNORM ELECTROCARDIOGRAM 06/14/2016 Ot V72.84 EXAM PRE- OPERATIVE NOS 06/14/2016 Ot 715.96 OSTEOARTHROS NOS-L/LEG 06/14/2016 BALAJI PARTIDA, Martha PALOMARES Ot 564.00 UNSPEC CONSTIPATION 06/14/2016 Martha CARPIO MD Ot 595.9 CYSTITIS NOS 06/14/2016 ANN MARIE PINZON DO Ot 733.90 BONE CARTILAGE DIS NOS 06/14/2016 LALO MORALES MD Ot M54.2 CERVICALGIA 06/14/2016 LALO MORALES MD Ot M54.5 LOW BACK PAIN 06/14/2016 LALO MORALES MD Ot M47.812 SPONDYLOSIS W/O MYELOPATHY OR RADICULOPA 06/14/2016 LALO MORALES MD, Ot M47.816 SPONDYLOSIS W/O MYELOPATHY OR RADICULOPA 06/14/2016 LALO MORALES MD Ot 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 07/04/2016 LALO MORALES MD Ot M47.812 SPONDYLOSIS W/O MYELOPATHY OR RADICULOPA 07/04/2016 LALO MORALES MD Ot M47.816 SPONDYLOSIS W/O MYELOPATHY OR RADICULOPA 07/04/2016 LALO MORALES MD Ot Z79.899 OTHER RETIREMENT (CURRENT) DRUG THERAPY 01/23/2017 ORENDER DO, ANN MARIE S Ot E03.9 HYPOTHYROIDISM, UNSPECIFIED 01/24/2017 ORENDER DO, ANN MARIE S Ot E03.9 HYPOTHYROIDISM, UNSPECIFIED 02/14/2017 ORENDER DO, ANN MARIE S Ot E03.9 HYPOTHYROIDISM, UNSPECIFIED 02/19/2017 ORENDER DO, ANN MARIE S Ot E03.9 HYPOTHYROIDISM, UNSPECIFIED 07/21/2017 ORENDER DO, ANN MARIE S Ot E66.9 OBESITY, UNSPECIFIED 07/21/2017 ORENDER DO, ANN MARIE S Ot E78.5 HYPERLIPIDEMIA, UNSPECIFIED 07/21/2017 ORENDER DO, ANN MARIE S Ot G89.29 OTHER CHRONIC PAIN 07/21/2017 ORENDER DO, ANN MARIE S Ot I10 ESSENTIAL (PRIMARY) HYPERTENSION 07/21/2017 ORENDER DO, ANN MARIE S Ot K21.9 GASTRO-ESOPHAGEAL REFLUX DISEASE WITHOUT 07/21/2017 ORENDER DO, ANN MARIE S Ot M54.5 LOW BACK PAIN 07/21/2017 ORENDER DO, ANN MARIE S Ot R07.9 CHEST PAIN, UNSPECIFIED 07/21/2017 ORENDER DO, ANN MARIE S Ot R10.13 EPIGASTRIC PAIN 07/21/2017 IVONENDER DO, ANN MARIE S Ot Z68.37 BODY MASS INDEX (BMI) 37.0-37.9, ADULT 07/21/2017 ORENDER DO, ANN MARIE S Ot Z79.82 RETIREMENT (CURRENT) USE OF ASPIRIN 07/21/2017 ORENDER DO, ANN MARIE S Ot Z79.899 OTHER RETIREMENT (CURRENT) DRUG THERAPY 07/21/2017 ORENDER DO, ANN MARIE S Ot E66.9 OBESITY, UNSPECIFIED 07/21/2017 ORENDER DO, ANN MARIE S Ot E78.5 HYPERLIPIDEMIA, UNSPECIFIED 07/21/2017 ORENDER DO, ANN MARIE S Ot G89.29 OTHER CHRONIC PAIN 07/21/2017 ORENDER , ANN MARIE S Ot I10 ESSENTIAL (PRIMARY) HYPERTENSION 07/21/2017 FREDDIE PARADA, ANN MARIE S Ot K21.9 GASTRO-ESOPHAGEAL REFLUX DISEASE WITHOUT 07/21/2017 IVONENDER JENNIFER PARADALINE S Ot M54.5 LOW BACK PAIN 07/21/2017 JENNIFER PINZON DOLINE S Ot R07.9 CHEST PAIN, UNSPECIFIED 07/21/2017 JENNIFER PINZON DOLINE S Ot R10.13 EPIGASTRIC PAIN 07/21/2017 JENNIFER PINZON DOLINE S Ot Z68.37 BODY MASS INDEX (BMI) 37.0-37.9, ADULT 07/21/2017 JENNIFER PINZON DOLINE S Ot Z79.82 RETIREMENT (CURRENT) USE OF ASPIRIN 07/21/2017 JENNIFER PINZON DOLINE S Ot 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 07/22/2017 ZYARA ROMERO PROCESS MOLD TECHNICIAN Ot E86.0 DEHYDRATION 07/25/2017 ZAYRA ROMERO PROCESS MOLD TECHNICIAN Ot E86.0 DEHYDRATION 08/18/2017 ANN MARIE PINZON DO S Ot E86.0 DEHYDRATION 08/18/2017 JENNIFER PINZON DOLINE S Ot N10 ACUTE PYELONEPHRITIS 08/20/2017 JENNIFER PINZON DOLINE S Ot E86.0 DEHYDRATION 08/20/2017 FREDDIE PARADA, ANN MARIE S Ot N10 ACUTE PYELONEPHRITIS 08/22/2017 LYUBOV PARTIDA, CHINA Patel Ot K02.9 DENTAL CARIES, UNSPECIFIED 08/22/2017 LYUBOV PARTIDA, CHINA Patel Ot Z01.818 ENCOUNTER FOR OTHER PREPROCEDURAL EXAMIN 08/28/2017 LYUBOV PARTIDA, CHINA Patel Ot F32.9 MAJOR DEPRESSIVE DISORDER, SINGLE EPISOD 08/28/2017 LYUBOV PARTIDA, CHINA Patel Ot F41.9 ANXIETY DISORDER, UNSPECIFIED 08/28/2017 LYUBOV PARTIDA, CHINA Patel Ot I10 ESSENTIAL (PRIMARY) HYPERTENSION 08/28/2017 LYUBOV PARTIDA, CHINA Patel Ot K29.70 GASTRITIS, UNSPECIFIED, WITHOUT BLEEDING 08/28/2017 LYUBOV PARTIDA, CHINA Patel Ot K44.9 DIAPHRAGMATIC HERNIA WITHOUT OBSTRUCTION 08/28/2017 LYUBOV PARTIDA, CHINA Patel Ot K59.09 OTHER CONSTIPATION 08/28/2017 LYUBOV PARTIDA, CHINA Patel Ot Z79.82 RETIREMENT (CURRENT) USE OF ASPIRIN 08/28/2017 CHINA MCARTHUR MD Ot Z79.899 OTHER RETIREMENT (CURRENT) DRUG THERAPY 08/28/2017 CHINA MCARTHUR MD Ot Z86.73 PRSNL HX OF TIA (TIA), AND CEREB INFRC W 08/28/2017 CHINA MCARTHUR MD Ot Z98.890 OTHER SPECIFIED POSTPROCEDURAL STATES 09/26/2017 CHINA MCARTHUR MD Ot F32.9 MAJOR DEPRESSIVE DISORDER, SINGLE EPISOD 09/26/2017 CHINA MCARTHUR MD Ot F41.9 ANXIETY DISORDER, UNSPECIFIED 09/26/2017 CHINA MCARTHUR MD Ot I10 ESSENTIAL (PRIMARY) HYPERTENSION 09/26/2017 CHINA MCARTHUR MD Ot K29.70 GASTRITIS, UNSPECIFIED, WITHOUT BLEEDING 09/26/2017 CHINA MCARTHUR MD Ot K44.9 DIAPHRAGMATIC HERNIA WITHOUT OBSTRUCTION 09/26/2017 CHINA MCARTHUR MD Ot K59.09 OTHER CONSTIPATION 09/26/2017 CHINA MCARTHUR MD Ot Z79.82 RETIREMENT (CURRENT) USE OF ASPIRIN 09/26/2017 CHINA MCARTHUR MD Ot Z79.899 OTHER RETIREMENT (CURRENT) DRUG THERAPY 09/26/2017 CHINA MCARTHUR MD Ot Z86.73 PRSNL HX OF TIA (TIA), AND CEREB INFRC W 09/26/2017 CHINA MCARTHUR MD Ot Z98.890 OTHER SPECIFIED POSTPROCEDURAL STATES 10/16/2017 ANN MARIE PINZON DO S Ot M25.551 PAIN IN RIGHT HIP 10/23/2017 ANN MARIE PINZON DO S Ot M25.551 PAIN IN RIGHT HIP 11/06/2017 ANN MARIE PINZON DO S Ot M25.511 PAIN IN RIGHT SHOULDER 11/06/2017 ANN MARIE PINZON DO S Ot M25.551 PAIN IN RIGHT HIP 12/26/2017 ZANA PARTIDA, RICHARD Delaeny Ot N32.81 OVERACTIVE BLADDER 12/26/2017 RICHARD SPANN MD Ot N36.42 INTRINSIC SPHINCTER DEFICIENCY (ISD) 12/26/2017 RICHARD SPANN MD, Ot N39.46 MIXED INCONTINENCE 12/26/2017 RICHARD SPANN MD Ot Z01.818 ENCOUNTER FOR OTHER PREPROCEDURAL EXAMIN Procedures There is no data. Results Test Result Range Complete blood count (CBC) with automated white blood cell (WBC) differential - 07/21/17 10:30 Blood leukocytes automated count (number/volume) 7.3 10*3/uL 4.3-11.0 Blood erythrocytes automated count (number/volume) 4.02 10*6/uL 4.35-5.85 Venous blood hemoglobin measurement (mass/volume) 13.2 g/dL 11.5-16.0 Blood hematocrit (volume fraction) 40 % 35-52 Automated erythrocyte mean corpuscular volume 100 [foz_us] 80-99 Automated erythrocyte mean corpuscular hemoglobin (mass per erythrocyte) 33 pg 25-34 Automated erythrocyte mean corpuscular hemoglobin concentration measurement ( mass/volume) 33 g/dL 32-36 Automated erythrocyte distribution width ratio 12.8 % 10.0-14.5 Automated blood platelet count (count/volume) 237 10*3/uL 130-400 Automated blood platelet mean volume measurement 9.7 [foz_us] 7.4-10.4 Automated blood neutrophils/100 leukocytes 90 % 42-75 Automated blood lymphocytes/100 leukocytes 4 % 12-44 Blood monocytes/100 leukocytes 4 % 0-12 Automated blood eosinophils/100 leukocytes 2 % 0-10 Automated blood basophils/100 leukocytes 0 % 0-10 Blood neutrophils automated count (number/volume) 6.5 10*3 1.8-7.8 Blood lymphocytes automated count (number/volume) 0.3 10*3 1.0-4.0 Blood monocytes automated count (number/volume) 0.3 10*3 0.0-1.0 Automated eosinophil count 0.1 10*3/uL 0.0-0.3 Automated blood basophil count (count/volume) 0.0 10*3/uL 0.0-0.1 PT panel in platelet poor plasma by coagulation assay - 07/21/17 10:30 Prothrombin time (PT) in platelet poor plasma by coagulation assay 11.5 s 12.2-14.7 INR in platelet poor plasma or blood by coagulation assay 0.8 0.8-1.4 Activated partial thromboplastin time (aPTT) in platelet poor plasma bycoagulation assay - 07/21/17 10:30 Activated partial thromboplastin time (aPTT) in platelet poor plasma bycoagulation assay 25 s 24-35 Blood manual differential performed detection - 07/21/17 10:30 Blood monocytes/100 leukocytes 1 % NRG Manual blood segmented neutrophils/100 leukocytes 84 % NRG Blood band neutrophils/100 leukocytes 9 % NRG Manual blood lymphocytes/100 leukocytes 6 % NRG Manual eosinophils/100 leukocytes in nose 0 % NRG Manual blood basophils/100 leukocytes 0 % NRG Blood erythrocyte morphology finding identification NORMAL NRG Comprehensive metabolic panel - 07/21/17 10:30 Serum or plasma sodium measurement (moles/volume) 139 mmol/L 135-145 Serum or plasma potassium measurement (moles/volume) 3.6 mmol/L 3.6-5.0 Serum or plasma chloride measurement (moles/volume) 104 mmol/L 98-107 Carbon dioxide 24 mmol/L 21-32 Serum or plasma anion gap determination (moles/volume) 11 mmol/L 5-14 Serum or plasma urea nitrogen measurement (mass/volume) 20 mg/dL 7-18 Serum or plasma creatinine measurement (mass/volume) 1.20 mg/dL 0.60-1.30 Serum or plasma urea nitrogen/creatinine mass ratio 17 NRG Serum or plasma creatinine measurement with calculation of estimated glomerular filtration rate 45 NRG Serum or plasma glucose measurement (mass/volume) 148 mg/dL 70-105 Serum or plasma calcium measurement (mass/volume) 9.4 mg/dL 8.5-10.1 Serum or plasma total bilirubin measurement (mass/volume) 0.6 mg/dL 0.1-1.0 Serum or plasma alkaline phosphatase measurement (enzymatic activity/volume) 97 U/L 40-136 Serum or plasma aspartate aminotransferase measurement (enzymatic activity/ volume) 63 U/L 5-34 Serum or plasma alanine aminotransferase measurement (enzymatic activity/volume ) 48 U/L 0-55 Serum or plasma protein measurement (mass/volume) 6.8 g/dL 6.4-8.2 Serum or plasma albumin measurement (mass/volume) 4.1 g/dL 3.2-4.5 Magnesium - 07/21/17 10:30 Magnesium 1.7 mg/dL 1.8-2.4 Serum or plasma troponin i.cardiac measurement (mass/volume) - 07/21/17 10:30 Serum or plasma troponin i.cardiac measurement (mass/volume) < ng/ mL <0.30 Serum or plasma amylase measurement (enzymatic activity/volume) - 07/21/17 10: 30 Serum or plasma amylase measurement (enzymatic activity/volume) 40 U /L 25-125 Serum or plasma lithium measurement (moles/volume) - 07/21/17 10:30 BNP level 42.0 pg/mL <100.0 Lipase - 07/21/17 10:30 Lipase 22 U/L 8-78 Serum or plasma troponin i.cardiac measurement (mass/volume) - 07/21/17 14:25 Serum or plasma troponin i.cardiac measurement (mass/volume) < ng/ mL <0.30 Serum or plasma troponin i.cardiac measurement (mass/volume) - 07/21/17 16:30 Serum or plasma troponin i.cardiac measurement (mass/volume) < ng/ mL <0.30 Encounters ACCT No. Visit Date/Time Discharge Status Pt. Type Provider Facility Loc./Unit Complaint [id number] 12/24/2017 05:31:00 12/24/2017 10:54:00 DIS Outpatient RICHARD SPANN MD [facility] PREOP MIXED INCONTINENCE,ISD, OVERACTIVE BLADDER [id number] 11/06/2017 12:52:00 11/06/2017 15:29:00 DIS Outpatient ANN MARIE PINZON DO [facility] REHAB R SHOULDER PAIN; R HIP PAIN [id number] 09/30/2017 10:18:00 09/30/2017 23:59:59 CLS Outpatient ANN MARIE PINZON DO [facility] RAD M25.551 [id number] 09/08/2017 09:30:00 09/08/2017 23:59:59 CLS Preadmit CHINA MCARTHUR MD [facility] ENDO GERD [id number] 08/28/2017 07:22:00 08/28/2017 10:15:00 DIS Outpatient CHINA MCARTHUR MD [facility] ENDO GERD [id number] 08/21/2017 05:35:00 08/21/2017 10:27:00 DIS Outpatient CHINA MCARTHUR MD [facility] PREOP EGD [id number] 07/22/2017 15:25:00 07/22/2017 16:55:00 DIS Outpatient ZAYRA ROMERO APRN [facility] DEHYDRATION [id number] 07/21/2017 11:30:00 07/21/2017 16:50:00 DIS Inpatient ORENDER DO ANN MARIE S [facility] ICU CHEST PAIN [id number] 04/23/2017 14:43:00 04/23/2017 23:59:59 CLS Outpatient ORENDER DO ANN MARIE S [facility] ACUTE PYELONEPHRITIS,ACUTE DEHYDRATION [id number] 01/23/2017 10:55:00 01/23/2017 23:59:59 CLS Outpatient IVONENDER DO ANN MARIE S [facility] RAD E03.9 [id number] 06/14/2016 08:33:00 06/14/2016 09:26:00 DIS Outpatient LALO MORALES MD [facility] CARD SPONDYLOSIS [id number] 03/01/2016 07:37:00 03/01/2016 08:52:00 DIS Outpatient LALO MORALES MD [facility] CARD SPONDYLOSIS [id number] 11/17/2015 08:34:00 11/17/2015 09:56:00 DIS Outpatient LALO MORALES MD [facility] CARD SPONDYLOSIS W/O MYELOPATHY OR RADICULOPATHY [id number] 11/14/2015 10:19:00 11/14/2015 23:59:59 CLS Outpatient LALO MORALES MD [facility] RAD LOW BACK PAIN [id number] 11/03/2014 09:51:00 11/03/2014 23:59:59 CLS Outpatient GISSEL PINZON DOQUELINE S [facility] RAD OSTEOPENIA [id number] 04/18/2014 13:01:00 05/06/2014 10:27:00 DIS Outpatient FREDDIE PARADA ANN MARIE S [facility] REHAB LUMBAR DDD, RT HIP PAIN [id number] 06/22/2013 08:51:00 06/22/2013 23:59:59 CLS Outpatient Martha CARPIO MD [facility] RAD CHRONIC CYSTITIS [id number] 12/31/2017 09:30:00 PEN Preadsidney SPANN MD, RICHARD Delaney [facility] SDC MIXED INCONTINENCE,ISD,OVERACTIVE BLADDER [id number] 05/26/2012 08:11:00 Document Registration [id number] 11/15/2011 09:00:00 Document Registration [id number] 11/13/2011 08:29:00 Document Registration [id number] 07/10/2011 08:27:00 Document Registration [id number] 05/06/2011 14:06:00 Document Registration [id number] 08/21/2010 10:24:00 Document Registration [id number] 05/11/2010 10:09:00 Document Registration 443 09/20/2017 11:21:29 09/20/2017 23:59:59 CLS Outpatient Ann Marie Pinzon
[2017-12-31 07:05] VITALS: BP 118/102
--- NOTE | 2017-12-31 07:05 | Progress Note-Pre Operative ---
Pre-Operative Progress Note H&P Reviewed The H&P was reviewed, patient examined and no changes noted. Date Seen by Provider: Dec 31, 2017 Time Seen by Provider: 07:05 Date H&P Reviewed: Dec 31, 2017 Time H&P Reviewed: 07:05 Pre-Operative Diagnosis: MIXED INCONTINENCE, ISD, AND OAB RICHARD SPANN MD Dec 31, 2017 7:05 am
--- NOTE | 2017-12-31 07:06 | Progress Note-Post Operative ---
Post-Operative Progess Note Surgeon (s)/Conciliator (s) Surgeon RICHARD SPANN MD Conciliator: N/A Pre-Operative Diagnosis MIXED INCONTINENCE, ISD, AND OAB Post-Operative Diagnosis SAME Procedure & Operative Findings Date of Procedure 12/31/17 Procedure Performed/Findings MACROPLASTIQUE IMPLANT Anesthesia Type GENERAL Estimated Blood Loss Estimated blood loss (mL): NEGLIGIBLE Specimens/Packing Specimens Removed N/A Packing: N/A RICHARD SPANN MD Dec 31, 2017 7:06 am
--- NOTE | 2017-12-31 07:09 | Discharge Inst-Urology ---
Discharge Inst-Urology Discharge Medications New, Converted, or Re-newed RX: RX on Chart Patient Instructions/Follow Up Plan Please make appointment to been seen in office in 4 weeks. In 48 Hours, if no bleeding, may resume Aspirin Increase oral fluids for 48 hours and then as needed. Diet and Activity as tolerated. If questions or concerns contact your physician Or seek help at emergency department. RICHARD SPANN MD Dec 31, 2017 7:09 am
[2017-12-31] MEDS ORDERED: FAMOTIDINE 20MG/2ML IV (PEPCID) ONE (07:10)
[2017-12-31] MEDS ORDERED: proPOfol 200 MG/20 ML (DIPRIVAN) VIAL IV ONE (07:20)
[2017-12-31] MEDS ORDERED: DEXAMETHASONE 10 MG/ML (DECADRON) 1 ML VIAL ONE (07:20)
[2017-12-31] MEDS ORDERED: ONDANSETRON 4 MG/2 ML (SDV) Z0FRAN ONE (07:20)
[2017-12-31] MEDS ORDERED: LIDOCAINE PF 2% 5 ML (XYLOCAINE) VIAL ONE (07:20)
[2017-12-31] MEDS ORDERED: MIDAZOLAM 2 MG/2 ML (VERSED) VIAL ONE (07:21)
[2017-12-31] MEDS ORDERED: fentaNYL INJECTION 100 MCG/2 ML AMP ONE (07:21)
[2017-12-31] MEDS ORDERED: LACTATED RINGERS 1,000 ML IV PRN (07:28)
[2017-12-31] MEDS ORDERED: cefTRIAXone INJECTION 1,000 MG in NS (IVPB) 100 ML IV ONE (07:30)
[2017-12-31] MEDS ORDERED: FAMOTIDINE 20MG/2ML IV (PEPCID) IV ONE (07:45)
[2017-12-31] MEDS ORDERED: morphine INJ 10 MG/ML 1ML (SYR OR VIAL) IVP PRN (08:00)
[2017-12-31] MEDS ORDERED: ONDANSETRON 4 MG/2 ML (SDV) Z0FRAN IVP PRN (08:00)
[2017-12-31 08:55] VITALS: BP 109/77
[2017-12-31] MEDS ORDERED: PHEN-640 PO (09:01)
[2017-12-31] MEDS ORDERED: NITR-65 PO (09:01)
[2017-12-31 09:25] VITALS: BP 115/61
[2017-12-31 09:55] VITALS: BP 133/85
--- NOTE | 2017-12-31 12:40 | OPERATIVE REPORT ---
DATE OF SERVICE: 12/31/2017 PREOPERATIVE DIAGNOSIS: Mixed urinary incontinence with intrinsic sphincter deficiency and overactive bladder. POSTOPERATIVE DIAGNOSIS: Mixed urinary incontinence with intrinsic sphincter deficiency and overactive bladder. OPERATION PERFORMED: Cystoscopy and Macroplastique implant. SURGEON: Fady Spann MD. ANESTHESIA: General. COMPLICATIONS: None. PROCEDURE: Under satisfactory general anesthesia, the patient in lithotomy position, genitalia were prepped and draped in usual sterile fashion. Cystoscope introduced under vision and a full syringe of Macroplastique was injected at the 6 o'clock position at the mid urethra with excellent elevation of the wall. Similarly, half a syringe was injected at 10 o'clock position and 2 o'clock position. There was excellent coaptation of the urethra at the mid level. There was no extravasation of the implant. The bladder was filled to at least half to perform a manual Valsalva maneuver after removing the cystoscope and it was negative. Cystoscope was reinserted. The bladder was emptied. The patient tolerated the procedure and anesthesia well and was sent to recovery room in stable condition. No bleeding. Job ID: [id number] DocumentID: [id number] Dictated Date: 12/31/2017 08:02:27 License Issuer Date: 12/31/2017 12:39:49 Dictated By: FADY SPANN MD [facility]
--- NOTE | 2017-12-31 13:02 | Anesthesia-General Post-Op ---
General Patient Condition Mental Status/LOC: Same as Preop Cardiovascular: Satisfactory Nausea/Vomiting: Absent Respiratory: Satisfactory Pain: Controlled Complications: Absent Post Op Complications Complications None Follow Up Care/Instructions Patient Instructions None needed. Anesthesia/Patient Condition Patient Condition Patient is doing well, no complaints, stable vital signs, no apparent adverse anesthesia problems. No complications reported per nursing. KEN BUSH CRNA Dec 31, 2017 13:02
== END 2017-12-31 10:00 | disposition home or self-care (01) ==
LOC: SDC 06:57
PROVIDERS: ATTEND Urology
DX: N36.42 Intrinsic sphincter deficiency (ISD) (principal); N39.46 Mixed incontinence; N32.81 Overactive bladder; Z11.2 Encounter for screening for other bacterial diseases; Z66 Do not resuscitate; Z79.899 Other long term (current) drug therapy; Z79.82 Long term (current) use of aspirin; I10 Essential (primary) hypertension; G47.33 Obstructive sleep apnea (adult) (pediatric); G43.909 Migraine, unspecified, not intractable, without status migrainosus; F32.9 Major depressive disorder, single episode, unspecified; M79.7 Fibromyalgia; K21.9 Gastro-esophageal reflux disease without esophagitis; I25.10 Atherosclerotic heart disease of native coronary artery without angina pectoris; Z86.73 Personal history of transient ischemic attack (TIA), and cerebral infarction without residual deficits
CPT/HCPCS: 87081

== ENCOUNTER → 2018-01-26 | Outpatient (CLI) | payer MEDICARE ==
[~2018-01-26] MED LIST changes: +NITR-65 PO; +PHEN-640 PO; -SENN-1 PO; +SENN-145 PO
--- NOTE | 2018-01-26 14:27 | Diagnostic Imaging Report ---
EXAMINATION: Lumbar spine, flexion and extension. INDICATION: Back pain. Flexion-extension views of the lumbar spine in the lateral projection were obtained. FINDINGS: The previous lumbar spine exam of 12/13/2015 noted degenerative disc disease throughout the lumbar spine but failed to show any sign of an acute abnormality. On this study, the degenerative changes are again visualized. There is 1.9 mm of retrolisthesis of L4 with suspect to L5 with both flexion and extension. There does not seem to be much difference between the flexion-extension views, however. Reportedly, the patient had difficulty maintaining either flexion or extension. There is no acute bony abnormality identified. IMPRESSION: There is minimal retrolisthesis of L4 with respect to L5 with both flexion and extension. There is no acute bony abnormality noted. Dictated by: Dictated on workstation # [id number]
== END ==
LOC: RAD 10:13
PROVIDERS: ATTEND Anesthesiology Pain Medicine
DX: M51.36 Other intervertebral disc degeneration, lumbar region (principal); M47.816 Spondylosis without myelopathy or radiculopathy, lumbar region; M43.16 Spondylolisthesis, lumbar region
CPT/HCPCS: 72114

== ENCOUNTER → 2018-07-17 | Outpatient (CLI) | payer MEDICARE ==
--- NOTE | 2018-07-17 10:17 | Diagnostic Imaging Report ---
PROCEDURE: MRI lumbar spine. TECHNIQUE: Multiplanar, multisequence MRI of the lumbar spine was performed without contrast. INDICATION: Chronic low back pain and left hip pain as well as right leg pain. Comparison is made with prior MRI of the lumbar spine performed on 02/28/2009. FINDINGS: Curvature and alignment of the lumbar spine is normal. Vertebral body heights are maintained. The marrow signal intensity is unremarkable. No geographic marrow lesion or acute compression fracture is seen. Multilevel degenerative disc disease is identified with variable disc space narrowing and desiccation. The conus is unremarkable at the L1-L2 level. T12-L1: No central canal or neural foraminal stenosis is identified. L1-L2: No central canal or neural foraminal stenosis is identified. L2-L3: There is mild ligamentous thickening with mild trefoil configuration of the sac. AP dimensions of the central canal are within normal limits. There does appear to be mild neural foraminal narrowing bilaterally due to broad-based disc/osteophyte complex. L3-L4: There is ligamentous thickening and facet changes as well as broad-based disc/osteophyte complex. This does result in moderate trefoil stenosis to the canal. There is narrowing of bilateral lateral recesses as well as moderate narrowing bilateral neural foramina. L4-L5: Central canal is widely patent. There is ligamentous thickening present. There is also moderate right neural foraminal stenosis due to right far lateral broad-based disc/osteophyte complex. L5-S1: There is some indentation upon the ventral thecal sac due to disc/osteophyte complex. Mild canal narrowing is seen. There is moderate bilateral neural foramina stenosis due to disc/osteophyte complex. The paraspinous tissues are unremarkable. IMPRESSION: Lumbar spondylosis with mild multilevel central canal, lateral recess and neural foraminal stenosis described level by level above. There has been some progression of degenerative disc disease when compared with prior MRI from 2008. Dictated by: Dictated on workstation # [id number]
== END ==
LOC: RAD 08:32
PROVIDERS: ATTEND Family Medicine
DX: M48.061 Spinal stenosis, lumbar region without neurogenic claudication (principal); M48.07 Spinal stenosis, lumbosacral region; M99.73 Connective tissue and disc stenosis of intervertebral foramina of lumbar region; M47.816 Spondylosis without myelopathy or radiculopathy, lumbar region; M24.28 Disorder of ligament, vertebrae
CPT/HCPCS: 72148

== ENCOUNTER → 2019-07-09 | Outpatient (RCR) | payer MEDICARE | END | disposition home or self-care (01) | LOC: CR3 06-09 08:55 | PROVIDERS: ATTEND Family Medicine | DX: Z29.8 Encounter for other specified prophylactic measures (principal) ==

== ENCOUNTER → 2019-08-11 | Outpatient (RCR) | payer MEDICARE | END | disposition home or self-care (01) | LOC: CR3 07-12 11:00 | PROVIDERS: ATTEND Family Medicine | DX: Z29.8 Encounter for other specified prophylactic measures (principal) ==

== ENCOUNTER 2019-09-09 11:12 | Outpatient (RCR) | payer MEDICARE | END 2019-09-09 12:05 | disposition home or self-care (01) | PROVIDERS: ATTEND Family Medicine | DX: M54.12 Radiculopathy, cervical region (principal); M25.511 Pain in right shoulder ==

== ENCOUNTER 2019-09-13 11:37 | Outpatient (RCR) | payer MEDICARE | END 2019-09-15 | disposition home or self-care (01) | LOC: CR3 11:37 | PROVIDERS: ATTEND Family Medicine | DX: Z29.8 Encounter for other specified prophylactic measures (principal) ==

== ENCOUNTER 2019-10-06 10:53 | Outpatient (RCR) | payer MEDICARE ==
[~2019-10-06 10:53] MED LIST changes: -FLUO20CA25 PO; +FLUO20CA45 PO; -TRAM50TA2 PO; +TRM50T PO
== END 2019-10-24 | disposition home or self-care (01) ==
LOC: CR3 10:53
PROVIDERS: ATTEND Family Medicine
DX: Z29.8 Encounter for other specified prophylactic measures (principal)

== ENCOUNTER 2019-11-26 11:47 | Outpatient (RCR) | payer MEDICARE ==
[~2019-11-26 11:47] MED LIST changes: -FLUO20CA45 PO; +FLUO20CA46 PO
== END 2019-11-28 | disposition home or self-care (01) ==
LOC: CR3 11:47
PROVIDERS: ATTEND Family Medicine
DX: Z29.8 Encounter for other specified prophylactic measures (principal)

== ENCOUNTER 2019-11-29 10:06 | Outpatient (RCR) | payer MEDICARE | END 2020-02-01 | disposition home or self-care (01) | PROVIDERS: ATTEND Nurse Practitioner Family | DX: M54.12 Radiculopathy, cervical region (principal); I10 Essential (primary) hypertension; I63.9 Cerebral infarction, unspecified; F32.9 Major depressive disorder, single episode, unspecified; Z87.81 Personal history of (healed) traumatic fracture ==

== ENCOUNTER 2019-12-01 11:00 | Outpatient (RCR) | payer MEDICARE | END 2019-12-31 | disposition home or self-care (01) | LOC: CR3 11:00 | PROVIDERS: ATTEND Family Medicine | DX: Z29.8 Encounter for other specified prophylactic measures (principal) ==

== ENCOUNTER → 2020-05-24 | Outpatient (CLI) | payer MEDICARE ==
--- NOTE | 2020-05-24 13:40 | Diagnostic Imaging Report ---
INDICATION: Injury to head. TECHNIQUE: Multiple contiguous axial images were obtained through the brain without the use of intravenous contrast. Auto Exposure Controls were utilized during the CT exam to meet ALARA standards for radiation dose reduction. There is no prior study for comparison. There were no extra-axial fluid collections. No intracranial hemorrhage. No intracranial mass or mass effect. No midline shift. The ventricles are normal in size and position. Calvarial windows appear unremarkable. IMPRESSION: Negative noncontrast brain CT. Dictated by: Dictated on workstation # [id number]
== END ==
LOC: RAD 13:15
PROVIDERS: ATTEND Family Medicine
DX: S09.90XA Unspecified injury of head, initial encounter (principal)
CPT/HCPCS: 70450

== ENCOUNTER → 2020-06-05 | Outpatient (CLI) | payer MEDICARE ==
[~2020-06-05] MED LIST changes: +ASPI-1238 PO; -ASPI-983 PO
== END ==
LOC: RAD 09:30
PROVIDERS: ATTEND Family Medicine
DX: R42 Dizziness and giddiness (principal); R20.2 Paresthesia of skin; R27.0 Ataxia, unspecified

== ENCOUNTER 2020-09-04 09:22 | Inpatient (IN) | payer MEDICARE ==
[~2020-09-04] VITALS: Ht 154.9 cm; Wt 104.7 kg
[~2020-09-04 09:22] MED LIST changes: -CALC-6 PO; +CALC1TAB84 PO
[2020-09-04] MEDS ORDERED: LACTATED RINGERS 1,000 ML IV ONE (10:00)
[2020-09-04 10:11] LABS: BASOPHILS % (AUTO) 0 % (0-10); EOSINOPHILS % (AUTO) 0 % (0-10); HEMATOCRIT 40 % (35-52); HEMOGLOBIN 13.1 g/dL (11.5-16.0); LYMPHOCYTES # (AUTO) 1.3 10^3/uL (1.0-4.0); LYMPHOCYTES % (AUTO) 12 % (12-44); MEAN CORPUSCULAR HEMOGLOBIN 32 pg (25-34); MEAN CORPUSCULAR HGB CONC 33 g/dL (32-36); MEAN CORPUSCULAR VOLUME 99 fL (80-99); MEAN PLATELET VOLUME 9.7 fL (9.0-12.2); MONOCYTES # (AUTO) 0.9 10^3/uL (0.0-1.0); MONOCYTES % (AUTO) 8 % (0-12); NEUTROPHILS # (AUTO) 8.4 10^3/uL (1.8-7.8); NEUTROPHILS % (AUTO) 79 % (42-75); PLATELET COUNT 299 10^3/uL (130-400); WHITE BLOOD COUNT 10.6 10^3/uL (4.3-11.0)
[2020-09-04 10:16] LABS: ALBUMIN 3.8 GM/DL (3.2-4.5); POTASSIUM 3.5 MMOL/L (3.6-5.0)
[2020-09-04 10:17] LABS: CALCIUM 9.1 MG/DL (8.5-10.1)
[2020-09-04 10:20] LABS: BILIRUBIN,TOTAL 1.2 MG/DL (0.1-1.0)
[2020-09-04 10:22] LABS: CREATININE SERUM 1.84 MG/DL (0.60-1.30)
[2020-09-04 10:35] LABS: PROTHROMBIN TIME PATIENT 13.9 SEC (12.2-14.7)
--- NOTE | 2020-09-04 10:50 | ED Respiratory ---
General Chief Complaint: Respiratory Problems Stated Complaint: SOB Nursing Triage Note: PT TO RM 9 WITH COMPLAINT OF SOA AND LOW O2. PT TESTED POSITIVE FOR COVID ON 08/21/2020. ON RA, PT WAS 74%, 5LNC 80%. Source: patient Exam Limitations: no limitations History of Present Illness Date Seen by Provider: Sep 04, 2020 Time Seen by Provider: 09:45 Initial Comments Patient presents ER by private conveyance from home with chief complaint of shortness of air. She is with history of positive Covid test on the third her symptoms started August 21, 2015 days ago. Today she woke up just being very short of breath. She has no history of lung disease or heart disease. No chest pain nausea vomiting or diarrhea. She borrowed her sister's oxygen at 2 L and came in with a sat of 94%. Nursing is using a oxygen mask at flush to keep her in the mid 90s. No fever. She is not on a blood thinner. She is not a smoker but does have secondhand smoke exposure in the past. Allergies and Home Medications Allergies Coded Allergies: No Known Drug Allergies (Unverified , 12/24/17) Home Medications Acetaminophen 500 Mg Tablet, 1,000 MG PO HS, (Reported) TAKES 2 (500MG) TABLETS Amitriptyline HCl 50 Mg Tablet, 50 MG PO HS, (Reported) Bupropion HCl 150 Mg Tab.er.24h, 150 MG PO DAILY, (Reported) Calcium Polycarbophil 625 Mg Tablet, 625 MG PO BID, (Reported) Cholecalciferol (Vitamin D3) 1,000 Unit Capsule, 1,000 UNIT PO HS, (Reported) Cyanocobalamin (Vitamin B-12) 5,000 Mcg Tab.subl, 2,500 MCG SL Q48H, (Reported) TAKES 1/2 (5,000MCG) TABLET Docusate Sodium 100 Mg Capsule, 200 MG PO BID, (Reported) TAKES 2 (100MG) CAPSULES Fluoxetine HCl 20 Mg Capsule, 60 MG PO DAILY, (Reported) TAKES 3 (20MG) CAPSULES Glucosamine/Chondro Silverman A 1 Each Tablet, 2 EACH PO DAILY, (Reported) Losartan/Hydrochlorothiazide 1 Each Tablet, 1 TAB PO DAILY, (Reported) Nitrofurantoin Monohyd/M-Cryst 100 Mg Capsule, 1 TAB PO BID TAKE WITH MEALS Prescribed by: AMALIA POWER on 12/31/17 0901 Pantoprazole Sodium 40 Mg Tablet.dr, 40 MG PO BID Prescribed by: ANN MARIE FRAZIER on 07/21/17 1607 Phenazopyridine HCl 200 Mg Tablet, 1 TAB PO TID PRN for SPASMS Prescribed by: AMALIA POWER on 12/31/17 0901 Propylene Glycol/Peg 400 10 Ml Drops.gel, 1 DROP OU HS, (Reported) Sennosides/Docusate Sodium 1 Each Tablet, 1 TAB PO BID, (Reported) Sulfamethoxazole/Trimethoprim 1 Each Tablet, 0.5 TAB PO DAILY, (Reported) TAKES 1/2 TABLET Tramadol HCl 50 Mg Tablet, 50 MG PO TID PRN for PAIN-MODERATE, (Reported) Patient Home Medication List Home Medication List Reviewed: Yes Review of Systems Review of Systems Constitutional: No chills, No diaphoresis EENTM: nose congestion; No ear discharge, No ear pain Respiratory: cough, short of breath Cardiovascular: No chest pain, No palpitations Gastrointestinal: No abdominal pain, No nausea, No vomiting Genitourinary: No discharge, No dysuria Musculoskeletal: No back pain, No joint pain Skin: No pruritus, No rash Psychiatric/Neurological: Denies Anxiety, Denies Depressed Past Ojggvyc-Qqomil-Oxzbte Hx Patient Social History Alcohol Use: Denies Use Recreational Drug Use: No Smoking Status: Never a Smoker Recent Foreign Travel: No Contact w/Someone Who Travel: No Recent Infectious Disease Expo: Yes Recent Hopitalizations: No Immunizations Up To Date Tetanus Booster (TDap): Unknown PED Vaccines UTD: No Date of Pneumonia Vaccine: May 26, 2017 Date of Influenza Vaccine: Jun 11, 2017 Seasonal Allergies Seasonal Allergies: No Past Medical History Surgeries: Yes (SUBTOTAL GASTRIC RESECTION DUE TO ULCERS, COLON/BLADDER TUMOR R EMOVED) Abdominal, Bladder Surgery, Gallbladder, Hysterectomy, Oophorectomy, Orthopedic Respiratory: Yes (CPAP AT HS) Sleep Apnea Currently Using CPAP: Yes Cardiac: Yes Hypertension Neurological: Yes (MICROVASCULAR ISCHEMIA) Headaches /Migraines Reproductive Disorders: No 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 Sexually Transmitted Disease: No HIV/AIDS: No Genitourinary: Yes UTI-Chronic Gastrointestinal: Yes (HX PEPTIC ULCER) Gastroesophageal Reflux, Diverticulosis, Hiatal Hernia, Ulcer, Irritable Bowel Musculoskeletal: Yes Arthritis, Fibromyalgia, Chronic Back Pain Endocrine: No HEENT: Yes Cataract Loss of Vision: Bilateral Hearing Impairment: Denies Cancer: No Psychosocial: Yes Depression Integumentary: No Blood Disorders: Yes (PERNICIOUS ANEMIA) Adverse Reaction/Blood Tranf: No (HAS HAD BLOOD WITH NO REACTION) Physical Exam Vital Signs - First Documented Capillary Refill : Less Than 3 Seconds Height: 5'6.00" Weight: 228lbs. 1.0oz. 103.991734xl; 43.00 BMI Method:Stated General Appearance: WD/WN, moderate distress Eyes: Bilateral Eye Normal Inspection, Bilateral Eye PERRL, Bilateral Eye EOMI HEENT: PERRL/EOMI, normal ENT inspection, pharynx normal Neck: full range of motion, supple, normal inspection Respiratory: lungs clear, normal breath sounds, respiratory distress, accessory muscle use; No wheezing Cardiovascular: normal peripheral pulses, regular rate, rhythm Gastrointestinal: normal bowel sounds, non tender, soft Extremities: non-tender, normal inspection, no pedal edema, normal capillary refill Neurologic/Psychiatric: alert, normal mood/affect, oriented x 3 Skin: normal color, warm/dry Focused Exam Lactate Level 09/04/20 09:50: Lactic Acid Level 2.34*H 09/04/20 11:55: Lactic Acid Level 0.94 Lactic Acid Level Laboratory Tests Test 09/04/20 09:50 09/04/20 11:55 Lactic Acid Level 2.34 MMOL/L (0.50-2.00) *H 0.94 MMOL/L (0.50-2.00) Progress/Results/Core Measures Suspected Sepsis Recent Fever Within 48 Hours: No Infection Criteria Present: None New/Unexplained Altered Menta: No Sepsis Screen: No Definite Risk SIRS Temperature: Pulse: 90 Respiratory Rate: 38 Laboratory Tests 09/04/20 09:50: White Blood Count 10.6 Blood Pressure 123 /70 Mean: 87 09/04/20 09:50: Lactic Acid Level 2.34*H 09/04/20 11:55: Lactic Acid Level 0.94 Laboratory Tests 09/04/20 09:50: Creatinine 1.84H, INR Comment 1.0, Platelet Count 299, Total Bilirubin 1.2H Results/Orders Lab Results Laboratory Tests Test 09/04/20 09:30 09/04/20 09:50 09/04/20 09:52 09/04/20 10:50 Range/Units C-Reactive Protein High Sensitivity 24.94 H 0.00-0.50 MG/DL Procalcitonin 0.50 H <0.10 NG/ML White Blood Count 10.6 4.3-11.0 10^3/uL Red Blood Count 4.04 3.80-5.11 10^6/uL Hemoglobin 13.1 11.5-16.0 g/dL Hematocrit 40 35-52 % Mean Corpuscular Volume 99 80-99 fL Mean Corpuscular Hemoglobin 32 25-34 pg Mean Corpuscular Hemoglobin Concent 33 32-36 g/dL Red Cell Distribution Width 12.1 10.0-14.5 % Platelet Count 299 130-400 10^3/uL Mean Platelet Volume 9.7 9.0-12.2 fL Immature Granulocyte % (Auto) 1 % Neutrophils (%) (Auto) 79 H 42-75 % Lymphocytes (%) (Auto) 12 12-44 % Monocytes (%) (Auto) 8 0-12 % Eosinophils (%) (Auto) 0 0-10 % Basophils (%) (Auto) 0 0-10 % Neutrophils # (Auto) 8.4 H 1.8-7.8 10^3/uL Lymphocytes # (Auto) 1.3 1.0-4.0 10^3/uL Monocytes # (Auto) 0.9 0.0-1.0 10^3/uL Eosinophils # (Auto) 0.0 0.0-0.3 10^3/uL Basophils # (Auto) 0.0 0.0-0.1 10^3/uL Immature Granulocyte # (Auto) 0.1 0.0-0.1 10^3/uL Prothrombin Time 13.9 12.2-14.7 SEC INR Comment 1.0 0.8-1.4 Activated Partial Thromboplast Time 29 24-35 SEC Sodium Level 137 135-145 MMOL/L Potassium Level 3.5 L 3.6-5.0 MMOL/L Chloride Level 98 98-107 MMOL/L Carbon Dioxide Level 22 21-32 MMOL/L Anion Gap 17 H 5-14 MMOL/L Blood Urea Nitrogen 32 H 7-18 MG/DL Creatinine 1.84 H 0.60-1.30 MG/DL Estimat Glomerular Filtration Rate 27 BUN/Creatinine Ratio 17 Glucose Level 113 H 70-105 MG/DL Lactic Acid Level 2.34 *H 0.50-2.00 MMOL/L Calcium Level 9.1 8.5-10.1 MG/DL Corrected Calcium 9.3 8.5-10.1 MG/DL Total Bilirubin 1.2 H 0.1-1.0 MG/DL Aspartate Amino Transf (AST/SGOT) 25 5-34 U/L Alanine Aminotransferase (ALT/SGPT) 30 0-55 U/L Alkaline Phosphatase 104 40-136 U/L Total Protein 7.0 6.4-8.2 GM/DL Albumin 3.8 3.2-4.5 GM/DL D-Dimer 3.23 H 0.00-0.49 UG/ML Blood Gas Puncture Site L BRACH Blood Gas Patient Temperature 37.7 Arterial Blood pH 7.43 7.37-7.43 Arterial Blood Partial Pressure CO2 37 35-45 MMHG Arterial Blood Partial Pressure O2 83 79-93 MMHG Arterial Blood HCO3 24 23-27 MMOL/L Arterial Blood Total CO2 25.1 21.0-31.0 MMOL/L Arterial Blood Oxygen Saturation 94 94-100 % Arterial Blood Base Excess 0.4 -2.5-2.5 MMOL/L Ryan Test YES-POS Blood Gas Ventilator Setting NO Blood Gas Inspired Oxygen 15 L Test 09/04/20 11:55 Range/Units Lactic Acid Level 0.94 0.50-2.00 MMOL/L Micro Results Microbiology 09/04/20 Influenza Types A,B Antigen (GUILLERMO) - Final, Complete My Orders Orders - TASHI HANNON Cbc With Automated Diff (09/04/20 09:59) Comprehensive Metabolic Panel (09/04/20 09:59) Blood Culture (09/04/20 09:59) Sputum Culture (09/04/20 09:59) Urinalysis (09/04/20 09:59) Urine Culture (09/04/20 09:59) Protime With Inr (09/04/20 09:59) Partial Thromboplastin Time (09/04/20 09:59) Chest 1 View, Ap/Pa Only (09/04/20 09:59) Ed Iv/Invasive Line Start (09/04/20 09:59) Ed Iv/Invasive Line Start (09/04/20 09:59) Vital Signs Adult Sepsis Patie Q15M (09/04/20 09:59) O2 (09/04/20 09:59) Remove Rings In Anticipation O (09/04/20 09:59) Lactic Acid Analyzer (09/04/20 09:59) Influenza A And B Antigens (09/04/20 09:59) Lactated Ringers (Lr 1000 Ml Iv Solution (09/04/20 10:00) Cpap (Set Up) (09/04/20 10:29) Arterial Blood Gas (09/04/20 10:50) Arterial Blood Draw (09/04/20 ) Dexamethasone Injection (Decadron Injec (09/04/20 12:30) Medications Given in ED Current Medications Medications Dose Ordered Sig/Suzan Route Start Time Stop Time Status Last Admin Dose Admin Dexamethasone Sodium Phosphate 6 mg ONCE ONCE IV 09/04/20 12:30 09/04/20 12:31 DC 09/04/20 13:58 6 MG Lactated Ringer's 1,000 ml @ 0 mls/hr Q0M ONCE IV 09/04/20 10:00 09/04/20 10:01 DC 09/04/20 10:13 0 MLS/HR Vital Signs/I&O 09/04/20 09/04/20 09/04/20 09:35 09:35 10:56 Temp 37.7 Pulse 90 75 Resp 38 30 B/P (MAP) 123/70 (87) Pulse Ox 94 100 O2 Delivery OxyMask OxyMask O2 Flow Rate 10.00 10.00 80.00 Capillary Refill : Less Than 3 Seconds Blood Pressure Mean: 87 Progress Note : Time: 12:14 Progress Note Patient is tolerating the BiPAP very well. She says she feels much better. Her vitals have significantly improved and her oxygen saturations are in the upper 90s. COVID-19 pneumonia. Were going to be cautious with IV fluids and will work to get her transferred to the ICU. Diagnostic Imaging Diagonstic Imaging: Xray Plain Films/CT/US/NM/MRI: chest Comments [facility] [place], [place] NAME: CLARI ESCOBEDO MED REC#: [id number] PT STATUS: REG ER : 1945 PHYSICIAN: TASHI HANNON MD ADMIT DATE: 09/04/20/ER Draft Date of Exam:09/04/20 CHEST 1 VIEW, AP/PA ONLY INDICATION: Covid positive, hypoxia and shortness of breath. Frontal chest obtained at 10:47 a.m. and compared to 07/21/2017. Heart is borderline in size. There is interval development of extensive patchy infiltrate throughout both lungs suspicious for Covid pneumonia. There is no pneumothorax or pleural fluid. IMPRESSION: Extensive new bilateral infiltrates suspicious for Covid pneumonia. No pneumothorax or pleural fluid. Dictated on workstation # [id number] Dict: 09/04/20 1058 Trans: 09/04/20 1102 [facility] [id number] Interpreted by: ZOYA GUPTA MD Electronically signed by: Reviewed: Reviewed by Me Departure Communication (Admissions) Time/Spoke to Admitting Phy: 12:19 Discussed the case with Dr. Ribera and she accepts the patient to the ICU on BiPAP. Impression Primary Impression: COVID-19 Additional Impression: Acute hypoxemic respiratory failure due to COVID-19 Disposition: ADMITTED INPATIENT Condition: Stable Admissions Decision to Admit Reason: Admit from ER (General) Decision to Admit/Date: Sep 04, 2020 Time/Decision to Admit Time: 12:19 Departure-Patient Inst. Referrals: ANN MARIE FRAZIER DO (PCP/Family) Primary Care Physician TASHI HANNON Sep 04, 2020 10:50
[2020-09-04 10:56] VITALS: BP 122/50
[2020-09-04 10:58] LABS: ABG BASE EXCESS 0.4 MMOL/L (-2.5-2.5); ABG OXYGEN SATURATION 94 % (94-100); ABG PCO2 37 MMHG (35-45); ABG PH 7.43 (7.37-7.43); ABG PO2 83 MMHG (79-93); ABG TCO2 25.1 MMOL/L (21.0-31.0)
[2020-09-04 11:02] LABS: ALLENS TEST YES-POS
--- NOTE | 2020-09-04 11:02 | Diagnostic Imaging Report ---
INDICATION: Covid positive, hypoxia and shortness of breath. Frontal chest obtained at 10:47 a.m. and compared to 07/21/2017. Heart is borderline in size. There is interval development of extensive patchy infiltrate throughout both lungs suspicious for Covid pneumonia. There is no pneumothorax or pleural fluid. IMPRESSION: Extensive new bilateral infiltrates suspicious for Covid pneumonia. No pneumothorax or pleural fluid. Dictated by: Dictated on workstation # [id number]
[2020-09-04 11:03] LABS: INSPIRED O2 15 L; PATIENT TEMP 37.7; VENTILATOR NO
--- NOTE | 2020-09-04 14:10 | NUR ---
pt transitioned to an inpatient bed for comfort at this time. pt updated on plan of care and progress to admission.
--- NOTE | 2020-09-04 14:44 | History & Physical-Hospitalist ---
History of Present Illness HPI/Chief Complaint Pt is a 74yoCF with a PMH of HTN and chronic pain who presented to the ER due to shortness of breath. She was at a large family gathering on and multiple people have since tested positive for COVID19 from that. She believes her symptoms started on 08/20. She originally tested negative but continued to feel poorly so was tested again and was positive for COVID19. She completed her 10 day isolation for symptom onset and was feeling better but then this morning became more short of breath promptly her to seek evaluation in the ER. She states she feels "like a piece of shit." She reports a broken thermometer so unsure of fevers at home so had been chilling so assumed she had one. She borrowed her sister's oxygen and decided to come in. She is currently on BiPAP to maintain oxygen saturation. Source: patient Date Seen 09/04/20 Time Seen by a Provider: 14:38 Attending Physician PCP Zara Pinzon DO Referring Physician Date of Admission Home Medications & Allergies Home Medications Reviewed patient Home Medication Reconciliation performed by pharmacy medication reconciliations nanotechnology technician and/or nursing. Patients Allergies have been reviewed. Allergies Allergies Coded Allergies No Known Drug Allergies (Unverified12/24/17) Past Angvnai-Atpeym-Oqatgu Hx Past Med/Social Hx: Reviewed Nursing Past Med/Soc Hx Patient Social History Alcohol Use: Denies Use Recreational Drug Use: No Smoking Status: Never a Smoker Recent Foreign Travel: No Contact w/other who traveled: No Recent Hopitalizations: No Recent Infectious Disease Expo: Yes Immunizations Up To Date Tetanus Booster (TDap): Unknown Pediatric: No Date of Pneumonia Vaccine: May 26, 2017 Date of Influenza Vaccine: Jun 11, 2017 Seasonal Allergies Seasonal Allergies: No Past Medical History Surgeries: Abdominal, Bladder Surgery, Gallbladder, Hysterectomy, Oophorectomy, Orthopedic Currently Using CPAP: Yes Cardiac: Hypertension Neurological: Headaches /Migraines Reproductive: No Sexually Transmitted Disease: No HIV/AIDS: No Hysterectomy Genitourinary: UTI-Chronic Gastrointestinal: Gastroesophageal Reflux, Diverticulosis, Hiatal Hernia, Ulcer, Irritable Bowel Musculoskeletal: Arthritis, Fibromyalgia, Chronic Back Pain HEENT: Cataract Loss of Vision: Bilateral Hearing Impairment: Denies Psychosocial: Depression History of Blood Disorders: Yes (PERNICIOUS ANEMIA) Adverse Reaction to Blood Ortiz: No (HAS HAD BLOOD WITH NO REACTION) Family History Reviewed Nursing Family Hx Review of Systems Constitutional: chills, fever (subjective), weakness EENTM: no symptoms reported Respiratory: see HPI Cardiovascular: No chest pain, No edema, No palpitations Gastrointestinal: No abdominal pain, No diarrhea, No nausea, No vomiting Musculoskeletal: back pain (chronic), neck pain (chronic) Skin: no symptoms reported Psychiatric/Neurological: No Symptoms Reported Physical Exam Physical Exam Vital Signs Vital Signs - First Documented Capillary Refill : Less Than 3 Seconds Height, Weight, BMI Height: 5'6.00" Weight: 228lbs. 1.0oz. 103.149706ff; 43.00 BMI Method:Stated General Appearance: Mild Distress (on BiPAP), Obese HEENT: PERRL/EOMI; No Scleral Icterus (L), No Scleral Icterus (R); Other (on BiPAP so full exam obscured) Neck: Normal Inspection, Supple; No Thyromegaly Respiratory: No Crackles; Decreased Breath Sounds; No Rhonci, No Wheezing; Other (on BiPAP) Cardiovascular: Regular Rate, Rhythm, No JVD, No Murmur Gastrointestinal: Normal Bowel Sounds, Non Tender Extremity: Normal Capillary Refill, No Calf Tenderness, No Pedal Edema Neurologic/Psychiatric: Alert, Oriented x3, Normal Mood/Affect Results Results/Procedures Labs Laboratory Tests 09/04/20 09:50 09/05/20 06:05 Patient resulted labs reviewed. Imaging: Reviewed Imaging Report Imaging [facility] [place], [place] NAME: FANNYCLARI Delaney [facility] REC#: [id number] PT STATUS: REG ER : 1945 PHYSICIAN: TASHI HANNON MD ADMIT DATE: 09/04/20/ER Signed Date of Exam:09/04/20 CHEST 1 VIEW, AP/PA ONLY INDICATION: Covid positive, hypoxia and shortness of breath. Frontal chest obtained at 10:47 a.m. and compared to 07/21/2017. Heart is borderline in size. There is interval development of extensive patchy infiltrate throughout both lungs suspicious for Covid pneumonia. There is no pneumothorax or pleural fluid. IMPRESSION: Extensive new bilateral infiltrates suspicious for Covid pneumonia. No pneumothorax or pleural fluid. Dictated by: Dictated on workstation # [id number] Dict: 09/04/20 1058 Trans: 09/04/20 1331 [facility] [id number] Interpreted by: ZOYA GUPTA MD Electronically signed by: ZOYA GUPTA MD 09/04/20 1331 Assessment/Plan Admission Diagnosis Acute Hypoxic Respiratory Failure due to COVID19 Admission Status: Inpatient Order (span 2 midnights) Reason for Inpatient Admission: see below Assessment and Plan Acute Hypoxic Respiratory Failure due to COVID19 Currently on BiPAP Outside of window for Remdesivir Start decadron Convalescent plasma, discussion EUA status and pt agreeable Lovenox IS HTN BP well controlled, trend Chronic pain Continue home tramadol and gabapentin PT/OT DVT ppx: Lovenox Code status: Discussed code status with patient as is currently requiring NIPPV to maintain oxygenation. She states she is a DNR. When asked if NIPPV was not sufficient whether she would want intubated and life support or to be made comfortable and allow to pass she states again that she is a DNR and to "let me go." DNR ordered placed. Will admit to floor. Diagnosis/Problems Diagnosis/Problems (1) Acute hypoxemic respiratory failure due to COVID-19 Status: Acute DIOGO ALMANZA MD Sep 04, 2020 14:44
--- NOTE | 2020-09-04 16:20 | NUR ---
pt family contacted at this time and informed of admission and pt room number.
[2020-09-04] MEDS ORDERED: ONDANSETRON 4 MG/2 ML (SDV) Z0FRAN IV PRN (16:45)
[2020-09-04] MEDS ORDERED: NS IV 500 ML 500 ML IV SCH (17:00)
[2020-09-04] MEDS ORDERED: ACETAMINOPHEN 500 MG TAB (TYLENOL) PO PRN (17:00)
[2020-09-04] MEDS ORDERED: CATHETER FLUSH 10 ML SYR IV PRN (17:00)
[2020-09-04 17:09] VITALS: BP 112/54
[2020-09-04] MEDS: LACTATED RINGERS 1,000 ML IV SCH (17:30)
[2020-09-04] MEDS ORDERED: RT-ALBUTEROL INHALER HFA (VENTOLIN HFA) 18 GM IH PRN (17:30)
[2020-09-04 19:58] VITALS: BP 108/54
[2020-09-04] MEDS ORDERED: ENOXAPARIN 40 MG/0.4 ML (LOVENOX) SYR SC SCH (20:00)
[2020-09-04] MEDS: GABAPENTIN 100 MG (NEURONTIN) CAP PO SCH (20:40)
[2020-09-04 22:24] VITALS: BP 122/50
[2020-09-04] MEDS: RT-ALBUTEROL INHALER HFA (VENTOLIN HFA) 18 GM IH SCH (22:24)
[2020-09-05] VITALS (9 sets, daily range): BP systolic 110–133; BP diastolic 50–78
[2020-09-05] MEDS: LACTATED RINGERS 1,000 ML IV SCH ×4 (01:14→22:17)
[2020-09-05 06:21] LABS: BASOPHILS % (AUTO) 0 % (0-10); EOSINOPHILS % (AUTO) 0 % (0-10); HEMATOCRIT 33 % (35-52); HEMOGLOBIN 10.6 g/dL (11.5-16.0); LYMPHOCYTES # (AUTO) 0.7 10^3/uL (1.0-4.0); LYMPHOCYTES % (AUTO) 9 % (12-44); MEAN CORPUSCULAR HEMOGLOBIN 32 pg (25-34); MEAN CORPUSCULAR HGB CONC 32 g/dL (32-36); MEAN CORPUSCULAR VOLUME 99 fL (80-99); MONOCYTES # (AUTO) 0.5 10^3/uL (0.0-1.0); MONOCYTES % (AUTO) 6 % (0-12); NEUTROPHILS # (AUTO) 7.1 10^3/uL (1.8-7.8); NEUTROPHILS % (AUTO) 85 % (42-75); PLATELET COUNT 235 10^3/uL (130-400); WHITE BLOOD COUNT 8.3 10^3/uL (4.3-11.0)
[2020-09-05 06:37] LABS: ALBUMIN 3.1 GM/DL (3.2-4.5); POTASSIUM 3.8 MMOL/L (3.6-5.0)
[2020-09-05 06:38] LABS: CALCIUM 8.7 MG/DL (8.5-10.1)
[2020-09-05 06:39] LABS: TOTAL PROTEIN 5.9 GM/DL (6.4-8.2)
[2020-09-05 06:41] LABS: BILIRUBIN,TOTAL 0.7 MG/DL (0.1-1.0)
[2020-09-05 06:43] LABS: CREATININE SERUM 1.23 MG/DL (0.60-1.30)
--- NOTE | 2020-09-05 08:48 | Diagnostic Imaging Report ---
INDICATION: Hypoxemia Portable chest 3:18 AM There are bilateral alveolar infiltrates. There are no effusions or pneumothoraces. Heart size is normal. IMPRESSION: Severe diffuse alveolar infiltrates consistent with pneumonia. No change from the previous day. Dictated by: Dictated on workstation # [id number]
[2020-09-05] MEDS: GABAPENTIN 100 MG (NEURONTIN) CAP PO SCH ×3 (09:34→22:17)
[2020-09-05] MEDS: ENOXAPARIN 40 MG/0.4 ML (LOVENOX) SYR SC SCH ×2 (09:37→22:17)
[2020-09-05] MEDS: RT-ALBUTEROL INHALER HFA (VENTOLIN HFA) 18 GM IH SCH ×2 (10:23→19:30)
--- NOTE | 2020-09-05 14:31 | NUR ---
I WAS UNABLE TO GET INTO CONTACT WITH PATIENT ON THE PHONE OR GET IN TOUCH WITH THE PATIENT'S EMERGENCY CONTACT. WILL FOLLOW UP TOMORROW.
--- NOTE | 2020-09-05 15:07 | NUR ---
"RD ASSESSMENT PMHx: HTN; GERD; diverticulosis; hiatal hernia; irritable bowel; PT INTERACTION: Received dietary consult for MST score. Note pt currently in COVID isolation per chart review. Note all diet information for nutrition assessment is per Nicol SIDDIQI or per chart review. Nicol states current appetite appears poor. Note avg PO intake 50% x1d, per chart review. Nicol states issues with chronic constipation and that pt take colace, senna, and miralax at home. Note pt has no BM recorded, and not currently on bowel regimen per chart review. Note unable to determine recent wt hx, per chart review. ABNORMAL NUTRITION-RELATED LAB VALUES LOW: Pro 5.9; alb 3.1; HIGH: BUN 31; glu 121; Est. kcal needs: 4519-2876 kcal | 15-18 kcal/kg Est. Pro needs: 83-104 g Pro | 0.8-1.0 g Pro/kg PES STATEMENT: Inadequate oral intake (NI-2.1) related to loss of appetite, and constipation, as evidenced by chart review, and avg PO intake 50% x1d. INTERVENTION: Continue with current diet order of 2000mg Na diet. Continue with current supplementation order of Ensure Enlive with meals TID, for increased kcal intake. Provides 350 kcal and 20 g Pro per serving. Pt may benefit from bowel regimen if constipation persists. Will continue to follow and reassess as pt needs, intake, and status change. Merle ROBERTS, MS RD LD [phone] cell"
--- NOTE | 2020-09-05 16:20 | Progress Note - Hospitalist ---
Subjective HPI/CC On Admission Date Seen by Provider: Sep 05, 2020 Time Seen by Provider: 16:18 Pt is a 74yoCF with a PMH of HTN and chronic pain who presented to the ER due to shortness of breath. She was at a large family gathering on and multiple people have since tested positive for COVID19 from that. She believes her symptoms started on 08/20. She originally tested negative but continued to feel poorly so was tested again and was positive for COVID19. She completed her 10 day isolation for symptom onset and was feeling better but then this morning became more short of breath promptly her to seek evaluation in the ER. She states she feels "like a piece of shit." She reports a broken thermometer so unsure of fevers at home so had been chilling so assumed she had one. She borrowed her sister's oxygen and decided to come in. She is currently on BiPAP to maintain oxygen saturation. Subjective/Events-last exam Pt reports doing well. Off BiPAP and on 10llpm HFNC. Focused Exam Lactate Level 09/04/20 09:50: Lactic Acid Level 2.34*H 09/04/20 11:55: Lactic Acid Level 0.94 Objective Exam Vital Signs Vital Signs Date Time Temp Pulse Resp B/P (MAP) Pulse Ox O2 Delivery O2 Flow Rate FiO2 09/05/20 19:31 75 30 92 60.00 09/05/20 19:30 High Flow N/C 09/05/20 19:24 36.0 111/53 (72) Capillary Refill : Less Than 3 Seconds General Appearance: No Apparent Distress, Chronically ill, Obese Respiratory: Lungs Clear, No Accessory Muscle Use Cardiovascular: Regular Rate, Rhythm, No Murmur Neurologic/Psychiatric: Alert, Oriented x3 Results/Procedures Lab Laboratory Tests 09/05/20 06:05 Patient resulted labs reviewed. Imaging: Reviewed Imaging Report Assessment/Plan Assessment and Plan Assess & Plan/Chief Complaint Acute Hypoxic Respiratory Failure due to COVID19 Now on HFNC, doing better Outside of window for Remdesivir Continue decadron Convalescent plasma, discussion EUA status and pt agreeable Lovenox IS HTN BP well controlled, trend Chronic pain Continue home tramadol and gabapentin PT/OT DVT ppx: Lovenox Diagnosis/Problems Diagnosis/Problems (1) Acute hypoxemic respiratory failure due to COVID-19 Status: Acute Clinical Quality Measures DVT/VTE Risk/Contraindication: Risk Factor Score Per Nursin RFS Level Per Nursing on Admit: 4+=Very High DIOGO ALMANZA MD Sep 05, 2020 16:20
[2020-09-06] VITALS (11 sets, daily range): BP systolic 115–142; BP diastolic 50–75
--- NOTE | 2020-09-06 02:00 | NUR ---
PT HAD GOTTEN UP TO USE THE BSC, WHEN HER SAT DECREASED TO 80S. PT IS NOW BACK IN BED, RT CALLED. BIPAP AT 100%. RESP. 45. ATIVAN GIVEN; PT WADE TX WE PT SAT IS NOW 95PERCENT. BIPAP DECREASE TO 90PERCENT. PT SAT IS 95. RESP NOW 25. PT CALMING DOWN NOW. WILL CONTINUE TO MONITOR.
[2020-09-06] MEDS: LORazepam INJ 2 MG/ML (ATIVAN) VIAL IV PRN ×2 (02:04→20:16)
[2020-09-06] MEDS: LACTATED RINGERS 1,000 ML IV SCH ×3 (02:46→13:22)
[2020-09-06] MEDS: RT-ALBUTEROL INHALER HFA (VENTOLIN HFA) 18 GM IH SCH ×5 (08:06→22:08)
[2020-09-06] MEDS: GABAPENTIN 100 MG (NEURONTIN) CAP PO SCH ×3 (08:49→20:16)
[2020-09-06] MEDS: ENOXAPARIN 40 MG/0.4 ML (LOVENOX) SYR SC SCH ×2 (08:49→20:13)
--- NOTE | 2020-09-06 10:55 | Progress Note - Hospitalist ---
Subjective HPI/CC On Admission Date Seen by Provider: Sep 06, 2020 Time Seen by Provider: 10:50 Pt is a 74yoCF with a PMH of HTN and chronic pain who presented to the ER due to shortness of breath. She was at a large family gathering on and multiple people have since tested positive for COVID19 from that. She believes her symptoms started on 08/20. She originally tested negative but continued to feel poorly so was tested again and was positive for COVID19. She completed her 10 day isolation for symptom onset and was feeling better but then this morning became more short of breath promptly her to seek evaluation in the ER. She states she feels "like a piece of shit." She reports a broken thermometer so unsure of fevers at home so had been chilling so assumed she had one. She borrowed her sister's oxygen and decided to come in. She is currently on BiPAP to maintain oxygen saturation. Subjective/Events-last exam pt reports feeling ok. Had to go back on BiPAP overnight. Focused Exam Lactate Level 09/04/20 09:50: Lactic Acid Level 2.34*H 09/04/20 11:55: Lactic Acid Level 0.94 Objective Exam Vital Signs Vital Signs Date Time Temp Pulse Resp B/P (MAP) Pulse Ox O2 Delivery O2 Flow Rate FiO2 09/06/20 09:50 36.0 72 93 09/06/20 09:00 NIV Bilevel 75.00 09/06/20 08:07 40 09/06/20 08:00 117/57 (77) Capillary Refill : Less Than 3 Seconds General Appearance: No Apparent Distress, Chronically ill, Obese Respiratory: Lungs Clear, No Accessory Muscle Use, Other (on BiPAP) Cardiovascular: Regular Rate, Rhythm, No Murmur Neurologic/Psychiatric: Alert, Oriented x3 Results/Procedures Lab Patient resulted labs reviewed. Imaging: Reviewed Imaging Report Assessment/Plan Assessment and Plan Assess & Plan/Chief Complaint Acute Hypoxic Respiratory Failure due to COVID19 Back on BiPAP Outside of window for Remdesivir Continue decadron Convalescent plasma, discussion EUA status and pt agreeable- awaiting arrival of plasma for patient Lovenox IS HTN BP well controlled, trend Chronic pain Continue home tramadol and gabapentin PT/OT DVT ppx: Lovenox Diagnosis/Problems Diagnosis/Problems (1) Acute hypoxemic respiratory failure due to COVID-19 Status: Acute Clinical Quality Measures DVT/VTE Risk/Contraindication: Risk Factor Score Per Nursin RFS Level Per Nursing on Admit: 4+=Very High DIOGO ALMANZA MD Sep 06, 2020 10:55
--- NOTE | 2020-09-06 23:52 | NUR ---
PATIENT FOUND WITH BIPAP OFF. PATIENT HAD REMOVED BIPAP MASK. PATIENTS O2 SATS AT 72%. BIPAP MASK APPLIED AND RT NOTIFIED. O2 LEVELS UP TO 88% AFTER 10-15 MINUTES WITH BIPAP ON. PATIENT EDUCATED ON IMPORTANCE OF CORRECTLY USING THE EQUIPMENT AND RISKS OF NOT WEARING BIPAP.
--- NOTE | 2020-09-07 00:28 | NUR ---
RT IN ROOM. BIPAP AT 100%. PT O2 SATS AT 93% WITH RESPIRATIONS RANGING FROM 30-50. PT TURNED TO SIDE TO MAXIMIZE VENTILATION. PT DID NOT TOLERATE PRONE POSITION. PT VERBALIZES THAT SHE DOES NOT WANT TO BE INTUBATED AND THAT SHE IS A DNR. DR. SILVA UPDATED ON THE SITUATION. NEW ORDER FOR MORPHINE DUE TO SOB/AGITATION AND CATHETER PLACEMENT OBTAINED AT THIS TIME.
[2020-09-07] MEDS ORDERED: morphine INJ 4 MG/ML 1 ML (VIAL/SYRINGE) IVP PRN (00:30)
--- NOTE | 2020-09-07 00:33 | NUR ---
PT SISTER, WESLEY, UPDATED ON SITUATION AND PATIENT'S STATUS.
--- NOTE | 2020-09-07 02:10 | NUR ---
NOTIFIED BY HELDER IN ICU OF PATIENT'S HR OF 37. UPON ENTERING THE ROOM THE PATIENT HAD TURNED HERSELF ONTO HER BACK AND REMOVED BIPAP. BIPAP MASK REAPPLIED, BUT PATIENT UNRESPONSIVE. RT NOTIFIED. RN X2 IN ROOM. PATIENT WITH NO PULSE OR RESPIRATIONS CHECKED BY RN X2. DR. SILVA NOTIFIED OF TIME OF . WESLEY, PATIENT'S SISTER, NOTIFIED OF . [facility] NOTIFIED.
--- NOTE | 2020-09-09 13:14 | Discharge Summary ---
Discharge Summary Date of Admission Sep 04, 2020 at 12:35 Date of Discharge Sep 07, 2020 at 05:00 Admission Diagnosis Acute Hypoxic Respiratory Failure due to COVID19 Discharge Diagnosis Acute Hypoxic Respiratory Failure due to COVID19 Back on BiPAP Outside of window for Remdesivir Continue decadron Convalescent plasma, discussion EUA status and pt agreeable- awaiting arrival of plasma for patient Lovenox IS HTN BP well controlled, trend Chronic pain Continue home tramadol and gabapentin PT/OT DVT ppx: Lovenox (1) Acute hypoxemic respiratory failure due to COVID-19 Status: Acute DIOGO ALMANZA MD Sep 09, 2020 13:14
== END 2020-09-07 05:00 | disposition expired | DRG 177 ==
LOC: EDUNIT# 09:22 → ER 09:24 → 4TH 12:35
PROVIDERS: ADMIT Family Medicine; ATTEND Family Medicine
PROC: 5A09457 Assistance with Respiratory Ventilation, 24-96 Consecutive Hours, Continuous Positive Airway Pressure (ICD-10-PCS; principal; 2020-09-04)
DX: U07.1 COVID-19 (principal); J12.89 Other viral pneumonia; J96.01 Acute respiratory failure with hypoxia; I10 Essential (primary) hypertension; Z66 Do not resuscitate; G47.30 Sleep apnea, unspecified; K21.9 Gastro-esophageal reflux disease without esophagitis; K44.9 Diaphragmatic hernia without obstruction or gangrene; M19.91 Primary osteoarthritis, unspecified site; M79.7 Fibromyalgia; M54.9 Dorsalgia, unspecified; F32.9 Major depressive disorder, single episode, unspecified
CPT/HCPCS: 36415; 36600; 71045; 80053; 82805; 83605; 84145; 85025; 85379; 85610; 85730; 86141; 86900; 86901; 87040; 87804; 94640; 94660; 94760; 96374